=== PATIENT | male | born 1955 | race Caucasian/White ===

== ENCOUNTER → 2017-03-16 | Outpatient (REF) | payer MEDICARE, MEDICAID ==
[~2017-03-16] MED LIST: AMPI500C9 PO; ASPI81TA21 PO; BACITAB PO; CARV6.25 PO; DOCU10CA PO; FERR1TAB8 PO; FLAG500T PO; KLOR1TAB77 PO; NOVO1INJ4 SC; OMEP40CA2 PO; ONGL10TA3 PO; PERCOCET PO; RISATAB3 PO; SERT50TA PO; SIMV40TA2 PO; TYLE325T5 PO
[2017-03-16 20:12] LABS: PERCENT SATURATION 15.3 % (19.7-50.0)
== END ==
LOC: M LAB REF 18:19
PROVIDERS: ATTEND Internal Medicine Nephrology
DX: D50.9 Iron deficiency anemia, unspecified (principal)

== ENCOUNTER 2017-03-30 08:43 | Outpatient (CLI) | payer MEDICARE ==
[~2017-03-30] VITALS: Ht 180.3 cm; Wt 96.4 kg
[2017-03-30] MEDS ORDERED: IRON SUCROSE 25 MG in NS 50 ML IV ONE (09:00)
[2017-03-30] MEDS ORDERED: IRON SUCROSE 475 MG in NS 250 ML IV ONE (10:00)
[2017-03-30] MEDS ORDERED: IMOD2TAB16 PO (11:31)
[2017-03-30] MEDS ORDERED: DRIS50002 PO (11:31)
[2017-03-30] MEDS ORDERED: [UNRECOGNIZED DRUG - CODE] SC (11:31)
== END 2017-03-30 13:40 | disposition home or self-care (01) ==
LOC: M INFU 08:43
PROVIDERS: ATTEND Internal Medicine Nephrology
DX: D50.9 Iron deficiency anemia, unspecified (principal); Z85.038 Personal history of other malignant neoplasm of large intestine; Z92.3 Personal history of irradiation; Z92.21 Personal history of antineoplastic chemotherapy; Z87.891 Personal history of nicotine dependence; I25.2 Old myocardial infarction; N18.9 Chronic kidney disease, unspecified; Z96.0 Presence of urogenital implants; Z79.82 Long term (current) use of aspirin; Z79.899 Other long term (current) drug therapy; Z79.4 Long term (current) use of insulin
CPT/HCPCS: 96365; 96366; J1756

== ENCOUNTER 2017-04-24 16:58 | Emergency (ER) | payer MEDICARE ==
[2017-04-24] MEDS ORDERED: ISOVUE-370 76% 100ML VIAL (Q9967) As Ordered (17:32)
[2017-04-24] MEDS: ADACEL/BOOSTRIX VACCINE (DIPHTH/PERTUSS/ACELL/TETANUS)0.5ML SYR (90715) IM (17:39)
[2017-04-24] MEDS: NS 1,000 ML IV ×2 (17:39→22:00)
[2017-04-24 17:52] LABS: BASO % 0.4 % (0.0-1.0); EOS % 0.6 % (0.0-3.0); HEMATOCRIT 30.8 % (42.0-52.0); HEMOGLOBIN 9.8 g/dl (14.0-18.0); IMMATURE GRANULOCYTE % 0.3 % (0-0); LYMPH # 0.9 10^3/uL (1.5-4.5); LYMPH % 12.9 % (24.0-44.0); MEAN CORPUSCULAR HEMOGLOBIN 29.5 pg (27.0-33.0); MEAN CORPUSCULAR HGB CONC 31.8 g/dl (32.0-36.5); MEAN CORPUSCULAR VOLUME 92.8 fl (80.0-96.0); MONO # 0.6 10^3/uL (0.0-0.8); MONO % 8.9 % (0.0-5.0); NEUTROPHILS # 5.5 10^3/uL (1.8-7.7); NEUTROPHILS % 76.9 % (36.0-66.0); PLATELET COUNT, AUTOMATED 174 10^3/uL (150-450); RED BLOOD COUNT 3.32 10^6/uL (4.30-6.10); RED CELL DISTRIBUTION WIDTH 16.4 % (11.5-14.5); WHITE BLOOD COUNT 7.2 10^3/uL (4.0-10.0)
[2017-04-24 18:04] LABS: INR 1.16
[2017-04-24 18:18] LABS: ALBUMIN 3.2 GM/DL (3.2-5.2); ALKALINE PHOSPHATASE 112 U/L (45-117); ALT/SGPT 14 U/L (12-78); ANION GAP 7 MEQ/L (8-16); AST/SGOT 16 U/L (7-37); BILIRUBIN,DIRECT < 0.1 MG/DL (0.0-0.2); BILIRUBIN,TOTAL 0.4 MG/DL (0.2-1.0); BLOOD UREA NITROGEN 72 MG/DL (7-18); CALCIUM LEVEL 7.8 MG/DL (8.8-10.2); CARBON DIOXIDE LEVEL 23 MEQ/L (21-32); CHLORIDE LEVEL 107 MEQ/L (98-107); CREATININE FOR GFR 4.59 MG/DL (0.70-1.30); GLOMERULAR FILTRATION RATE 13.9 (>49); GLUCOSE, FASTING 211 MG/DL (80-110); LIPASE 87 U/L (73-393); SODIUM LEVEL 137 MEQ/L (136-145); TOTAL PROTEIN 7.8 GM/DL (6.4-8.2)
[2017-04-24 18:22] LABS: POTASSIUM SERUM 5.3 MEQ/L (3.5-5.1)
[2017-04-24] MEDS: ONDANSETRON 4MG/2ML VIAL (J2405) IV (18:50)
[2017-04-24] MEDS: MORPHINE 4 MG/ML 1ML SYRINGE IV ×2 (18:51→22:01)
== END 2017-04-24 22:08 | disposition short-term general hospital (02) ==
LOC: M ED 16:58
DX: S82.491B Other fracture of shaft of right fibula, initial encounter for open fracture type I or II (principal); S82.391B Other fracture of lower end of right tibia, initial encounter for open fracture type I or II; W13.2XXA Fall from, out of or through roof, initial encounter; Y92.89 Other specified places as the place of occurrence of the external cause; Y93.89 Activity, other specified; Y99.8 Other external cause status; M50.30 Other cervical disc degeneration, unspecified cervical region; I25.10 Atherosclerotic heart disease of native coronary artery without angina pectoris; I13.11 Hypertensive heart and chronic kidney disease without heart failure, with stage 5 chronic kidney disease, or end stage renal disease; N18.6 End stage renal disease; E78.5 Hyperlipidemia, unspecified; Z79.899 Other long term (current) drug therapy; Z79.82 Long term (current) use of aspirin; Z79.4 Long term (current) use of insulin; Z87.81 Personal history of (healed) traumatic fracture; Z95.5 Presence of coronary angioplasty implant and graft; Z92.21 Personal history of antineoplastic chemotherapy; Z98.890 Other specified postprocedural states
CPT/HCPCS: J0690

== ENCOUNTER → 2017-08-04 | Outpatient (CLI) | payer MEDICARE | LOC: M RAD 11:56 | DX: N18.6 End stage renal disease (principal) | CPT/HCPCS: G0365 ==

== ENCOUNTER → 2017-12-15 | Outpatient (CLI) | payer MEDICARE ==
[~2017-12-15] MED LIST changes: -AMPI500C9 PO; -ASPI81TA21 PO; -BACITAB PO; -CARV6.25 PO; -DOCU10CA PO; -FERR1TAB8 PO; -FLAG500T PO; +ISOVUE-300 61% 50ML VIAL (Q9967) As Ordered; -KLOR1TAB77 PO; +LIDOCAINE 2% MDV 20 ML VIAL As Ordered; +MIDAZOLAM INJ 2 MG/2 ML VIAL (J2250) As Ordered; -NOVO1INJ4 SC; -OMEP40CA2 PO; -ONGL10TA3 PO; -PERCOCET PO; -RISATAB3 PO; -SERT50TA PO; -SIMV40TA2 PO; -TYLE325T5 PO; +fentaNYL 100 MCG/2 ML INJECTION (J3010) As Ordered
== END | disposition home or self-care (01) ==
LOC: M IRPRO 06:21
DX: T82.858A Stenosis of other vascular prosthetic devices, implants and grafts, initial encounter (principal); N18.6 End stage renal disease; Z99.2 Dependence on renal dialysis; I87.8 Other specified disorders of veins; Z45.2 Encounter for adjustment and management of vascular access device
CPT/HCPCS: 36902

== ENCOUNTER → 2018-06-17 | Outpatient (CLI) | payer MEDICARE ==
[~2018-06-17] MED LIST changes: +AMPI500C9 PO; +ASPI81TA21 PO; +BACITAB PO; +CALC1CAP31 PO; +CARV6.25 PO; +DARB10SYRN IV; +DOCU10CA PO; +DRIS50003 PO; +FERR1TAB8 PO; +FERR325T3 PO; +FLAG500T PO; +FLOM0.4C39 PO; +IMOD2TAB16 PO; -ISOVUE-300 61% 50ML VIAL (Q9967) As Ordered; +ISOVUE-300 61% 50ML VIAL (Q9967) As Ordered ONE; +KLOR1TAB77 PO; -LIDOCAINE 2% MDV 20 ML VIAL As Ordered; +LIDOCAINE 2% MDV 20 ML VIAL As Ordered ONE; -MIDAZOLAM INJ 2 MG/2 ML VIAL (J2250) As Ordered; +MIDAZOLAM INJ 2 MG/2 ML VIAL (J2250) As Ordered ONE; +NOVO1INJ4 SC; +OMEP40CA2 PO; +ONGL10TA3 PO; +PERCOCET PO; +RISATAB3 PO; +SERT50TA PO; +SIMV40TA2 PO; +TYLE325T5 PO; +[UNRECOGNIZED DRUG - CODE] SC; -fentaNYL 100 MCG/2 ML INJECTION (J3010) As Ordered; +fentaNYL 100 MCG/2 ML INJECTION (J3010) As Ordered ONE
--- NOTE | 2018-07-14 08:20 | REPIR ---
DATE OF SERVICE: PREOPERATIVE DIAGNOSES: End-stage renal disease, dysfunctional left brachiocephalic arteriovenous fistula, left hand pain with coolness. POSTOPERATIVE DIAGNOSES: End-stage renal disease, dysfunctional left brachiocephalic arteriovenous fistula, left hand pain with coolness. PROCEDURE: Left brachiocephalic arteriovenous fistulogram, left cephalic vein angioplasty with 8 x 200 mm balloon, retrograde left brachial artery angiogram. SURGEON: Dr. Melissa Paul. HYDR[employer] PLANT SITE MANAGER: Debo Acosta and Marlen Alatorre ANESTHESIA: Local with sedation with 1.5 mg Versed, 100 mcg fentanyl and 2 mL of 2% lidocaine CONTRAST: 5 mL. SEDATION TIME: 11:15 a.m. to 11:31 a.m. for a total of 60 minutes. Sedation was administered. Cardiopulmonary monitoring performed under my direct supervision. I was present for directed the entire case. COMPLICATIONS: None. DRAINS: None. SPECIMENS: None. IMPLANTS: None. INDICATION: The patient is a 62 old male with end-stage renal disease who dialyzes through a left brachiocephalic arteriovenous fistula which has had difficulty with cannulation as well as the patient having some discomfort in the left hand, which he feels is cool. The patient will undergo a fistulogram with possible angioplasty, stent and/or atherectomy. Risks, benefits and alternative options were discussed with the patient. FLUORO TIME: 0.2 minutes. DESCRIPTION OF PROCEDURE: The patient was taken to the angiography suite, placed supine on the angiography room table and then prepped and draped in a standard surgical fashion. The left brachiocephalic arteriovenous fistula was cannulated. A fistulogram was performed showing an 85% stenosis in the cephalic vein in the mid upper arm. The cephalic vein with angioplasty with 8 x 200 balloon during which time a retrograde left brachial artery angiogram was performed. Completion angiogram showed resolution of the stenosis in the cephalic vein with good flow into the central venous system with no stenosis or occlusion noted. Catheters and wires were removed. The sheath was removed and a #2-0 Prolene suture placed at the puncture site for hemostasis. Dressings were then applied. The patient tolerated the procedure well. All instrument, sponge, needle counts were correct at the end the case. There were no complications. Dr. Paul was present for and directed the entire case. The patient was transferred to [facility] subsequent discharged in stable condition. The left brachiocephalic arteriovenous fistula stable for continued use. RADIOLOGIC SUPERVISION INTERPRETATION: The fistulogram showed stenosis of the cephalic vein in the midportion. The remainder of the cephalic vein was patent and the subclavian vein essentially and the system was patent. The cephalic vein underwent angioplasty with an 8 x 200 balloon after which completion fistulogram showed resolution of the stenosis. A retrograde brachial artery angiogram was performed showing no stenosis at the arteriovenous anastomosis and good flow in the brachial artery proximal distal to the arteriovenous anastomosis.
== END | disposition home or self-care (01) ==
LOC: M IRPRO 09:11
PROVIDERS: ATTEND Surgery Vascular Surgery
DX: T82.858A Stenosis of other vascular prosthetic devices, implants and grafts, initial encounter (principal); N18.6 End stage renal disease; Z99.2 Dependence on renal dialysis
CPT/HCPCS: 36902; C1725; C1769; C1894; J2250; J3010; Q9967

== ENCOUNTER → 2019-05-03 | Outpatient (REF) | payer MEDICARE ==
[~2019-05-03] MED LIST changes: -ISOVUE-300 61% 50ML VIAL (Q9967) As Ordered ONE; -LIDOCAINE 2% MDV 20 ML VIAL As Ordered ONE; -MIDAZOLAM INJ 2 MG/2 ML VIAL (J2250) As Ordered ONE; -OMEP40CA2 PO; +OMEP40CA97 PO; +SERT-141 PO; -SERT50TA PO; -SIMV40TA2 PO; +SIMV40TA20 PO; -fentaNYL 100 MCG/2 ML INJECTION (J3010) As Ordered ONE
== END ==
LOC: M LAB REF 09:10
PROVIDERS: ATTEND Dermatology
DX: C44.629 Squamous cell carcinoma of skin of left upper limb, including shoulder (principal)
CPT/HCPCS: 11102; 11103; 88305; G0463

== ENCOUNTER → 2019-05-19 | Outpatient (REF) | payer MEDICARE | LOC: M LAB REF 18:20 | PROVIDERS: ATTEND Dermatology | DX: D23.62 Other benign neoplasm of skin of left upper limb, including shoulder (principal) ==

== ENCOUNTER 2020-03-23 16:09 | Emergency (ER) | payer MEDICARE ==
[~2020-03-23] VITALS: Ht 180.3 cm; Wt 115.8 kg
[~2020-03-23 16:09] MED LIST changes: +HUMA75IN2 SC; +POTA20TA6 PO
--- NOTE | 2020-03-23 17:48 | REP ---
INDICATION: bowel extruding from stoma R/O obstruction. COMPARISON: 01/06/2015. TECHNIQUE: Two AP views abdomen and pelvis performed. FINDINGS: Bowel gas pattern is normal with no evidence of bowel obstruction. A right ureteral stent is again seen in similar position compared to the prior study. There appears to be an ostomy bag projecting over the left mid abdomen. Scattered vascular calcifications are noted diffusely. There are moderate degenerative changes of the spine. IMPRESSION: No bowel obstruction. <Electronically signed by [employer] > 03/23/20 [id number]
[2020-03-23 18:34] LABS: BASO % 0.6 % (0.0-1.0); EOS # 0.1 10^3/uL (0.0-0.5); EOS % 1.5 % (0.0-3.0); HEMATOCRIT 33.9 % (42.0-52.0); LYMPH # 0.7 10^3/uL (1.5-5.0); LYMPH % 15.3 % (24.0-44.0); MEAN CORPUSCULAR HEMOGLOBIN 29.3 pg (27.0-33.0); MEAN CORPUSCULAR HGB CONC 32.4 g/dl (32.0-36.5); MEAN CORPUSCULAR VOLUME 90.4 fl (80.0-96.0); MONO # 0.6 10^3/uL (0.0-0.8); MONO % 11.9 % (0.0-5.0); NEUTROPHILS # 3.3 10^3/uL (1.5-8.5); NEUTROPHILS % 70.3 % (36.0-66.0); PLATELET COUNT, AUTOMATED 137 10^3/uL (150-450); RED BLOOD COUNT 3.75 10^6/uL (4.30-6.10); WHITE BLOOD COUNT 4.7 10^3/uL (4.0-10.0)
[2020-03-23 18:50] LABS: INR 1.13; PROTHROMBIN TIME 14.8 SECONDS (12.5-14.3)
[2020-03-23 19:00] LABS: ALBUMIN 3.4 GM/DL (3.2-5.2); BILIRUBIN,TOTAL 0.4 MG/DL (0.2-1.0); CALCIUM LEVEL 8.7 MG/DL (8.8-10.2); CREATININE FOR GFR 4.19 MG/DL (0.70-1.30); GLOMERULAR FILTRATION RATE 15.3 (>49); POTASSIUM SERUM 3.6 MEQ/L (3.5-5.1); TOTAL PROTEIN 7.3 GM/DL (6.4-8.2)
[2020-03-23 19:46] VITALS: BP 148/72
== END 2020-03-23 19:49 | disposition home or self-care (01) ==
LOC: M ED 16:09
DX: K94.09 Other complications of colostomy (principal); Z85.048 Personal history of other malignant neoplasm of rectum, rectosigmoid junction, and anus; Z92.21 Personal history of antineoplastic chemotherapy; Z87.19 Personal history of other diseases of the digestive system; E11.9 Type 2 diabetes mellitus without complications; I10 Essential (primary) hypertension; E78.5 Hyperlipidemia, unspecified; I25.2 Old myocardial infarction; N18.6 End stage renal disease; F32.9 Major depressive disorder, single episode, unspecified; Z95.5 Presence of coronary angioplasty implant and graft; Z88.1 Allergy status to other antibiotic agents; Z79.82 Long term (current) use of aspirin

== ENCOUNTER → 2020-04-04 | Outpatient (CLI) | payer MEDICARE ==
[~2020-04-04] MED LIST changes: +GASTROGRAFIN SOLUTION 30ML (Q9963) As Ordered ONE
--- NOTE | 2020-04-04 14:19 | REP ---
INDICATION: OTHER COMPLICATIONS OF COLOSTOMY COMPARISON: 04/24/2017 TECHNIQUE: Axial noncontrast images from the lung bases to the pubic symphysis with coronal and sagittal reformations. This CT examination was performed using the following dose reduction techniques: Automated exposure control, adjustment of mA and/or kv according to the patient's size, and use of iterative reconstruction technique. FINDINGS: Mild hepatosplenomegaly is again suggested and unchanged. No focal hepatic or splenic lesion identified. Pancreas, gallbladder, and bilateral adrenal glands are relatively normal/stable. Kidneys demonstrate stable age-related changes along with stable right ureteral stent in satisfactory position. Patient is noted to be status post partial left hemicolectomy with ostomy via the left anterior abdominal wall and oversewn Lucinda's pouch. There is no evidence for bowel obstruction or obvious acute inflammatory process. Infiltrative soft tissue surrounding the rectum within the presacral space appears relatively stable as compared to 2018. Further evaluation of the pelvis demonstrates partially collapsed bladder and presumed age-appropriate prostate along with moderate bilateral fat containing inguinal hernias. No ascites. No free air. No significant adenopathy noted. Abdominal aorta and vasculature demonstrate atherosclerotic changes without aneurysm. Musculoskeletal structures demonstrate degenerative changes without acute osseous abnormality. IMPRESSION: 1. Prior partial left hemicolectomy and colostomy. Oversewn Lucinda's pouch. No evidence for bowel obstruction or obvious focal inflammatory process. 2. Infiltrative soft tissue process surrounding the rectum in the presacral space appears essentially unchanged compared to 2018. No free pelvic fluid, ascites or drainable collection/abscess. No free air. 3. Chronic renal changes and stable satisfactory position to the right ureteral stent. 4. Mild hepatosplenomegaly again suggested without focal hepatic or splenic lesion. <Electronically signed by Leonard Cruz > 04/04/20 [id number]
== END ==
LOC: M RAD 12:16
PROVIDERS: ATTEND Surgery
DX: K94.09 Other complications of colostomy (principal); K43.5 Parastomal hernia without obstruction or gangrene
CPT/HCPCS: 74176; Q9963

== ENCOUNTER → 2020-04-28 | Outpatient (CLI) | payer MEDICARE ==
[~2020-04-28] MED LIST changes: +ASPI81TA26 PO; -GASTROGRAFIN SOLUTION 30ML (Q9963) As Ordered ONE
== END ==
LOC: M LABSMTC 10:00
PROVIDERS: ATTEND Anesthesiology
DX: Z01.812 Encounter for preprocedural laboratory examination (principal); Z20.822 Contact with and (suspected) exposure to COVID-19

== ENCOUNTER → 2020-06-03 | Outpatient (CLI) | payer MEDICARE | LOC: M LABSMTC 09:16 | PROVIDERS: ATTEND Anesthesiology | DX: Z01.818 Encounter for other preprocedural examination (principal); Z11.52 Encounter for screening for COVID-19 ==

== ENCOUNTER 2020-06-08 06:01 | Day surgery (SDC) | payer MEDICARE ==
[~2020-06-08] VITALS: Ht 180.3 cm; Wt 102.9 kg
[~2020-06-08 06:01] MED LIST changes: +D5W/0.2% SODIUM CHLORIDE 1,000 ML IV ONE; +cefoTEtan DISODIUM 2 GM in D5W MINI-BAG PLUS 50 ML IV ONE
--- OUTSIDE RECORDS SUMMARY | 2020-06-08 06:07 | CCD | Continuity of Care Document ---
Author Author Cezar FERMIN M.D. Organization Unknown Address [address], [address] [place] [address] Phone [phone] Care Team Providers Care Patient Transporter Name Role Phone Martín Framer M.D. AUTM [phone] Qamar Hodges M.D. AUTM [phone] AUTM Unavailable Problems Description No Active Problems Social History Type Date Description Comments Sex Unknown ETOH Use Denies alcohol use Tobacco Use Start: Unknown End: Unknown Patient is a former smoker QUIT 1997 Recreational Drug Use Denies Drug Use Allergies, Adverse Reactions, Alerts Active Allergies Reaction Severity Comments Date Vancomycin (po vanco) Diarrhea 2014 Medications Active Medications SIG Qnty Indications Ordering Provide r Date Carvedilol 6.25mg Tablets every day 180tabs Unknown Simvastatin 40mg Tablets take one tablet by mouth at bedtime Unknown Aspir-[address] Unknown Sertraline HCL 50mg Tablets 1 by mouth every day Unknown Omeprazole 40mg Capsules DR 1 by mouth every day Unknown Probiotic Capsules 1 by mouth every day Unknown Ferrous Sulfate 325(65Fe) mg Table ts 1 by mouth once a day Unknown Calcitriol 0.25mcg Capsules once a day Unknown Humalog Mix 75/25 Kwikpen (75-25)100Unit/ML Supn twice a day Unknown Immunizations Description No Information Available Vital Signs Date Vital Result Comment 03/26/2020 3:06pm BP Systolic 128 mmHg BP Diastolic 66 mmHg Height 71 inches 5'11" Weight 252.12 lb BMI (Body Mass Index) 35.2 kg/m2 [place] Body Weight 172 lb Weight 114.364 kg BSA (Body Surface Area) 2.33 m2 06/13/2019 3:14pm BP Systolic 173 mmHg BP Diastolic 79 mmHg Height 71 inches 5'11" Weight 250.50 lb BMI (Body Mass Index) 34.9 kg/m2 [place] Body Weight 172 lb Weight 113.627 kg BSA (Body Surface Area) 2.32 m2 Results Description No Information Available Procedures Description No Information Available Medical Devices Description No Information Available Encounters Description No Information Available Assessments Description No Information Available Plan of Treatment No Information Available Functional Status Description No Information Available Mental Status Description No Information Available Referrals Description No Information Available
--- OUTSIDE RECORDS SUMMARY | 2020-06-08 06:07 | CCD | Continuity of Care Document ---
Author Author Cezar FERMIN M.D. Organization Unknown Address [address], [address] [place] [address] Phone [phone] Care Team Providers Care Global Climate Change Researcher Name Role Phone Martín Farmer M.D. AUTM [phone] Qamar Hodges M.D. AUTM [phone] AUTM Unavailable AUTM Unavailable Problems Description No Active Problems [...] Available Vital Signs Date Vital Result Comment 04/16/2020 11:00am BP Systolic 130 mmHg BP Diastolic 78 mmHg Height 71 inches 5'11" Weight 248.25 lb BMI (Body Mass Index) 34.6 kg/m2 [place] Body Weight 172 lb Weight 112.606 kg BSA (Body Surface Area) 2.31 m2 03/26/2020 3:06pm BP Systolic 128 mmHg BP Diastolic 66 mmHg Height 71 inches 5'11" Weight 252.12 lb BMI (Body Mass Index) 35.2 kg/m2 [place] Body Weight 172 lb Weight 114.364 kg BSA (Body Surface Area) 2.33 m2 Results Description No Information Available Procedures Description No Information Available Medical Devices Description No Information Available Encounters Type Date Location Provider Dx Diagnosis Office Visit 03/26/2020 3:00p [facility] Juan Francisco barnhart M.D. K94.09 Other complications of colostomy K43.5 Parastomal hernia without ob struction or gangrene N18.6 End stage renal disease Assessments Date Code Description Provider 03/26/2020 K94.09 Other complications of colostomy Juan Francisco Fermin M.D. 03/26/2020 K43.5 Parastomal hernia without obstru ction or gangrene Juan Francisco Fermin M.D. 03/26/2020 N18.6 End stage renal disease Juan Francisco barbosa M.D. Plan of Treatment 03/26/2020 - Juan Francisco Fermin M.D.* K94.09 Other complications of colostomy* Comments:* Patient was counseled that he clearly has a significant prolapse of his stoma. He reports that this reduces when he is flat. Any activity however leads to significant prolapse even worse than it currently is according to his report. Today I do not feel a parastomal hernia although I didn't think when I saw him a year and a half ago that there was a suggestion of a small parastomal hernia. The abdomen is obese but soft and without any tenderness. He's had no symptoms of obstruction. He has had some bleeding from his stoma which appears somewhat congested today. I recommended that we obtain a CT scan to evaluate his stoma and look for evidence of a parastomal hernia. I advised him that if revision of the stoma might be the most appropriate treatment for his prolapsing stoma. I do want to know for certain whether there is any parastomal hernia. His obesity makes this determination difficult on physical exam. If there is a parastomal hernia then I would need to be prepared to repair this at the same time as his stoma revision. Patient had an opportunity to ask questions. He does want to proceed with evaluation to have this repaired. I will see him back after the CT scan and we can discuss treatment. * K43.5 Parastomal hernia without obstruction or gangrene* New Xrays:* CT Abdomen And Pelvis W/ Contrast, Ordered: 03/26/20 * N18.6 End stage renal disease Functional Status Description No Information Available Mental Status Description No Information Available Referrals Description No Information Available
--- OUTSIDE RECORDS SUMMARY | 2020-06-08 06:08 | CCD ---
Author Author [facility] Organization [facility] Address Unknown Phone Unavailable Care Team Providers Care Anvil Worker Name Role Phone Saida ALEX MD Unavailable Unavailable Saida ALEX MD Unavailable Unavailable Saida ALEX MD Unavailable Unavailable Saida ALEX MD Unavailable Unavailable Saida ALEX MD Unavailable Unavailable Saida ALEX MD Unavailable Unavailable Saida ALEX MD Unavailable Unavailable Saida ALEX MD Unavailable Unavailable Saida ALEX MD Unavailable Unavailable Saida ALEX MD Unavailable Unavailable Saida ALEX MD Unavailable Unavailable Saida ALEX MD Unavailable Unavailable Saida ALEX MD Unavailable Unavailable Saida ALEX MD Unavailable Unavailable Saida ALEX MD Unavailable Unavailable ISAISaida MD Unavailable Unavailable ISAI S ANGELA PYANE Unavailable Unavailable ISAI S ANGELA PAYNE Unavailable Unavailable ISAI S ANGELA PAYEN Unavailable Unavailable ISAI S ANGELA PAYNE Unavailable Unavailable ISAISaida MD Unavailable Unavailable ISAI S ANGELA MD Unavailable Unavailable ISAI S ANGELA PAYNE Unavailable Unavailable ISAI S ANGELA MD Unavailable Unavailable ISAI S ANGELA PAYNE Unavailable Unavailable ISAI S ANGELA PAYNE Unavailable Unavailable ISAI S ANGELA PAYNE Unavailable Unavailable ISAISaida MD Unavailable Unavailable ISAI S ANGELA PAYNE Unavailable Unavailable ISAISaida DUTTON MD Unavailable Unavailable ISAI, S ANGELA PAYNE Unavailable Unavailable ISAI S ANGELA PAYNE Unavailable Unavailable ISAI, S ANGELA PAYNE Unavailable Unavailable ISAISaida DUTTON MD Unavailable Unavailable ISAISaida DUTTON MD Unavailable Unavailable ISAISaida DUTTON MD Unavailable Unavailable ISAISaida DUTTON MD Unavailable Unavailable ISAI S ANGELA PAYNE Unavailable Unavailable ISAISaida DUTTON MD Unavailable Unavailable ISAISaida DUTTON MD Unavailable Unavailable ISAISaida DUTTON MD Unavailable Unavailable ISAISaida DUTTON MD Unavailable Unavailable ISAISaida DUTTON MD Unavailable Unavailable ISAISaida DUTTON MD Unavailable Unavailable ISAI, S ANGELA PAYNE Unavailable Unavailable ISAISaida DUTTON MD Unavailable Unavailable ISAI, S ANGELA PAYNE Unavailable Unavailable ISAISaida DUTTON MD Unavailable Unavailable ISAI, S ANGELA PAYNE Unavailable Unavailable ISAI S ANGELA PAYNE Unavailable Unavailable ISAI, S ANGELA PAYNE Unavailable Unavailable ISAI S ANGELA PAYNE Unavailable Unavailable ISAISaida DUTTON MD Unavailable Unavailable ISAI, S ANGELA PAYNE Unavailable Unavailable ISAISaida DUTTON MD Unavailable Unavailable ISAI, S ANGELA PAYNE Unavailable Unavailable ISAI S ANGELA PAYNE Unavailable Unavailable ISAI S ANGELA PAYNE Unavailable Unavailable ISAI S ANGELA PAYNE Unavailable Unavailable Mary Hodges MD Unavailable Unavailable Mary Hodges MD Unavailable Unavailable Mary Hodges MD Unavailable Unavailable Mary Hodges MD Unavailable Unavailable Mary Hodges MD Unavailable Unavailable Mary Hodges MD Unavailable Unavailable Mary Hodges MD Unavailable Unavailable Mary Hodges MD Unavailable Unavailable Mary Hodges MD Unavailable Unavailable Mary Hodges MD Unavailable Unavailable LyndaMary palafox MD Unavailable Unavailable LyndakerMary MD Unavailable Unavailable LyndaMary palafox MD Unavailable Unavailable LyndakerMary MD Unavailable Unavailable LyndakerMary MD Unavailable Unavailable LyndakerMary MD Unavailable Unavailable LyndaMary palafox MD Unavailable Unavailable LyndaMary palafox MD Unavailable Unavailable LyndaMary palafox MD Unavailable Unavailable LyndaMary palafox MD Unavailable Unavailable LyndakerMary MD Unavailable Unavailable LyndakerMary MD Unavailable Unavailable LyndaMary palafox MD Unavailable Unavailable LyndaMary palafox MD Unavailable Unavailable LyndaMary palafox MD Unavailable Unavailable LyndaMary palafox MD Unavailable Unavailable LyndaMary palafox MD Unavailable Unavailable LyndaMary palafox MD Unavailable Unavailable LyndaMary palafox MD Unavailable Unavailable LyndaMary palafox MD Unavailable Unavailable LyndaMary palafox MD Unavailable Unavailable LyndaMary palafox MD Unavailable Unavailable LyndaMary palafox MD Unavailable Unavailable LyndaMary palafox MD Unavailable Unavailable LyndaMary palafox MD Unavailable Unavailable LyndaMary palafox MD Unavailable Unavailable LyndaMary palafox MD Unavailable Unavailable LyndaMary palafox MD Unavailable Unavailable LyndaMary palafox MD Unavailable Unavailable LyndaMary palafox MD Unavailable Unavailable LyndaMary palafox MD Unavailable Unavailable LyndaMary palafox MD Unavailable Unavailable LyndaMary palafox MD Unavailable Unavailable LynMary ortez MD Unavailable Unavailable LynMary ortez MD Unavailable Unavailable LyndaMary palafox MD Unavailable Unavailable LyndaMary palafox MD Unavailable Unavailable LyndaMary palafox MD Unavailable Unavailable LyndaMary palafox MD Unavailable Unavailable LynMary ortez MD Unavailable Unavailable LynMary ortez MD Unavailable Unavailable LyndaMary palafox MD Unavailable Unavailable LyndaMary palafox MD Unavailable Unavailable LyndaMary palafox MD Unavailable Unavailable LyndaMary palafox MD Unavailable Unavailable LyndaMary palafox MD Unavailable Unavailable LyndaMary palafox MD Unavailable Unavailable LyndaMary palafox MD Unavailable Unavailable LyndaMary palafox MD Unavailable Unavailable LyndaMary palafox MD Unavailable Unavailable LyndakerMary MD Unavailable Unavailable Lyndaker, Mary Foote MD Unavailable Unavailable Lyndaker, Mary Foote MD Unavailable Unavailable Lyndaker, aMry Foote MD Unavailable Unavailable Lyndaker, Mary Foote MD Unavailable Unavailable Lyndaker, Mary Foote MD Unavailable Unavailable LyndaMary palafox MD Unavailable Unavailable LyndaMary palafox MD Unavailable Unavailable LyndaMary palafox MD Unavailable Unavailable LyndaMary palafox MD Unavailable Unavailable Lyndaker, Mary Foote MD Unavailable Unavailable Lyndaker, Mary Foote MD Unavailable Unavailable LyndaMary palafox MD Unavailable Unavailable LyndaMary palafox MD Unavailable Unavailable LyndaMary palafox MD Unavailable Unavailable Lyndavivienne, Mary Foote MD Unavailable Unavailable Lyndavivienne, Mary Foote MD Unavailable Unavailable Lyndavivienne, Mary Foote MD Unavailable Unavailable LyndaMary palafox MD Unavailable Unavailable LyndaMary palafox MD Unavailable Unavailable LyndaMary palafox MD Unavailable Unavailable LyndaMary palafox MD Unavailable Unavailable Lyndavivienne, aMry Foote MD Unavailable Unavailable LyndaMary palafox MD Unavailable Unavailable LyndaMary palafox MD Unavailable Unavailable LyndaMary palafox MD Unavailable Unavailable LyndaMary palafox MD Unavailable Unavailable LyndaMary palafox MD Unavailable Unavailable LyndaMary palafox MD Unavailable Unavailable LyndaMary palafox MD Unavailable Unavailable LyndaMary palafox MD Unavailable Unavailable ISAISaida HART MD Unavailable Unavailable Saida ALEX MD Unavailable Unavailable ISAISaida HART MD Unavailable Unavailable Saida ALEX MD Unavailable Unavailable Saida ALEX MD Unavailable Unavailable ISAISaida DUTTON MD Unavailable Unavailable ISAISaida DUTTON MD Unavailable Unavailable ISAISaida DUTTON MD Unavailable Unavailable ISAISaida DUTTON MD Unavailable Unavailable ISAISaida HART MD Unavailable Unavailable Saida ALEX MD Unavailable Unavailable Saida ALEX MD Unavailable Unavailable Saida ALEX MD Unavailable Unavailable Saida ALEX MD Unavailable Unavailable ISAISaida DUTTON MD Unavailable Unavailable ISAISaida DUTTON MD Unavailable Unavailable ISAISaida DUTTON MD Unavailable Unavailable ISAISaida DUTTON MD Unavailable Unavailable ISAISaida DUTTON MD Unavailable Unavailable ISAISaida DUTTON MD Unavailable Unavailable ISAISaida DUTTON MD Unavailable Unavailable ISAISaida HART MD Unavailable Unavailable ISAISaida HART MD Unavailable Unavailable ISAISaida DUTTON MD Unavailable Unavailable ISAISaida HART MD Unavailable Unavailable ISAISaida HART MD Unavailable Unavailable Saida ALEX MD Unavailable Unavailable Saida ALEX MD Unavailable Unavailable ISAISaida DUTTON MD Unavailable Unavailable Saida ALEX MD Unavailable Unavailable ISAISaida HART MD Unavailable Unavailable Saida ALEX MD Unavailable Unavailable Saida ALEX MD Unavailable Unavailable Saida ALEX MD Unavailable Unavailable Saida ALEX MD Unavailable Unavailable Saida ALEX MD Unavailable Unavailable Saida ALEX MD Unavailable Unavailable Saida ALEX MD Unavailable Unavailable Saida ALEX MD Unavailable Unavailable Saida ALEX MD Unavailable Unavailable Saida ALEX MD Unavailable Unavailable Saida ALEX MD Unavailable Unavailable Saida ALEX MD Unavailable Unavailable Saida ALEX MD Unavailable Unavailable Saida ALEX MD Unavailable Unavailable Saida ALEX MD Unavailable Unavailable Saida ALEX MD Unavailable Unavailable Saida ALEX MD Unavailable Unavailable Saida ALEX MD Unavailable Unavailable Saida ALEX MD Unavailable Unavailable Saida ALEX MD Unavailable Unavailable Saida ALEX MD Unavailable Unavailable Saida ALEX MD Unavailable Unavailable Saida ALEX MD Unavailable Unavailable Saida ALEX MD Unavailable Unavailable Saida ALEX MD Unavailable Unavailable Saida ALEX MD Unavailable Unavailable Saida ALEX MD Unavailable Unavailable Saida ALEX MD Unavailable Unavailable Tasia ESCAMILLA Unavailable Unavailable Arvin FERMIN MD Unavailable Unavailable Arvin FERMIN MD Unavailable Unavailable Arvin FERMIN MD Unavailable Unavailable Arvin FERMIN MD Unavailable Unavailable Arvin FERMIN MD Unavailable Unavailable Arvin FERMIN MD Unavailable Unavailable Arvin FERMIN MD Unavailable Unavailable Arvin FERMIN MD Unavailable Unavailable Arvin FERMIN MD Unavailable Unavailable Arvin FERMIN MD Unavailable Unavailable Arvin FERMIN MD Unavailable Unavailable Arvin FERMIN MD Unavailable Unavailable Arvin FERMIN MD Unavailable Unavailable Arvin FERMIN MD Unavailable Unavailable Arvin FERMIN MD Unavailable Unavailable Arvin FERMIN MD Unavailable Unavailable Arvin FERMIN MD Unavailable Unavailable Arvin FERMIN MD Unavailable Unavailable Arvin FERMIN MD Unavailable Unavailable Arvin FERMIN MD Unavailable Unavailable Arvin FERMIN MD Unavailable Unavailable Arvin FERMIN MD Unavailable Unavailable Arvin FERMIN MD Unavailable Unavailable Arvin FERMIN MD Unavailable Unavailable Arvin FERMIN MD Unavailable Unavailable Arvin FERMIN MD Unavailable Unavailable Arvin FERMIN MD Unavailable Unavailable Arvin EFRMIN MD Unavailable Unavailable Arvin FERMIN MD Unavailable Unavailable Arvin FERMIN MD Unavailable Unavailable Arvin FERMIN MD Unavailable Unavailable Arvin FERMIN MD Unavailable Unavailable Arvin FERMIN MD Unavailable Unavailable Arvin FERMIN MD Unavailable Unavailable ZANDERArvin MCKEON MD Unavailable Unavailable Arvin FERMIN MD Unavailable Unavailable ZANDER, Arvin SARAH MD Unavailable Unavailable Arvin FERMIN MD Unavailable Unavailable Arvin FERMIN MD Unavailable Unavailable ZANDER, Arvin SARAH MD Unavailable Unavailable Arvin FERMIN MD Unavailable Unavailable ZANDER, Arvin SARAH MD Unavailable Unavailable Artur BUCKLEY Unavailable Unavailable Thankachan, Reeba ORCHID HAND Unavailable Unavailable Thankachan, Reeba ORCHID HAND Unavailable Unavailable Thankachan, Reeba ORCHID HAND Unavailable Unavailable Thankachan, Reeba ORCHID HAND Unavailable Unavailable Thankachan, Reeba ORCHID HAND Unavailable Unavailable Thankachan, Reeba ORCHID HAND Unavailable Unavailable Thankachan, Reeba ORCHID HAND Unavailable Unavailable Thankachan, Reeba ORCHID HAND Unavailable Unavailable Thankachan, Reeba ORCHID HAND Unavailable Unavailable Thankachan, Reeba ORCHID HAND Unavailable Unavailable Thankachan, Reeba ORCHID HAND Unavailable Unavailable Thankachan, Reeba ORCHID HAND Unavailable Unavailable Thankachan, Reeba ORCHID HAND Unavailable Unavailable Thankachan, Reeba ORCHID HAND Unavailable Unavailable Thankachan, Reeba ORCHID HAND Unavailable Unavailable Thankachan, Reeba ORCHID HAND Unavailable Unavailable Thankachan, Reeba ORCHID HAND Unavailable Unavailable Thankachan, Reeba ORCHID HAND Unavailable Unavailable Thankachan, Reeba ORCHID HAND Unavailable Unavailable Thankachan, Reeba ORCHID HAND Unavailable Unavailable Thankachan, Reeba ORCHID HAND Unavailable Unavailable Thankachan, Reeba ORCHID HAND Unavailable Unavailable Thankachan, Reeba ORCHID HAND Unavailable Unavailable Thankachan, Reeba ORCHID HAND Unavailable Unavailable Thankachan, Reeba ORCHID HAND Unavailable Unavailable Thankachan, Reeba ORCHID HAND Unavailable Unavailable Thankachan, Reeba ORCHID HAND Unavailable Unavailable Thankachan, Reeba ORCHID HAND Unavailable Unavailable Thankachan, Reeba ORCHID HAND Unavailable Unavailable Thankachan, Reeba ORCHID HAND Unavailable Unavailable Thankachan, Reeba ORCHID HAND Unavailable Unavailable Thankachan, Reeba ORCHID HAND Unavailable Unavailable Thankachan, Reeba ORCHID HAND Unavailable Unavailable Thankachan, Reeba ORCHID HAND Unavailable Unavailable Thankachan, Reeba ORCHID HAND Unavailable Unavailable Thankachan, Reeba ORCHID HAND Unavailable Unavailable Thankachan, Reeba ORCHID HAND Unavailable Unavailable Thankachan, Reeba ORCHID HAND Unavailable Unavailable Thankachan, Reeba ORCHID HAND Unavailable Unavailable Thankachan, Reeba ORCHID HAND Unavailable Unavailable Thankachan, Reeba ORCHID HAND Unavailable Unavailable Thankachan, Reeba ORCHID HAND Unavailable Unavailable Thankachan, Reeba ORCHID HAND Unavailable Unavailable Thankachan, Reeba ORCHID HAND Unavailable Unavailable Re-disclosure Warning The records that you are about to access may contain information from federally-assisted alcohol or drug abuse programs. If such information is present, then the following federally mandated warning applies: This information has been disclosed to you from records protected by federal confidentiality rules (42 CFR part 2). The federal rules prohibit you from making any further disclosure of this information unless further disclosure is expressly permitted by the written consent of the person to whom it pertains or as otherwise permitted by 42 CFR part 2. A general authorization for the release of medical or other information is NOT sufficient for this purpose. The Federal rules restrict any use of the information to criminally investigate or prosecute any alcohol or drug abuse patient.The records that you are about to access may contain highly sensitive health information, the redisclosure of which is protected by Article 27-F of the [facility] Public Health law. If you continue you may have access to information: Regarding HIV / AIDS; Provided by facilities licensed or operated by the [facility] Office of Mental Health; or Provided by the [facility] Office for People With Developmental Disabilities. If such information is present, then the following [facility] mandated warning applies: This information has been disclosed to you from confidential records which are protected by state law. State law prohibits you from making any further disclosure of this information without the specific written consent of the person to whom it pertains, or as otherwise permitted by law. Any unauthorized further disclosure in violation of state law may result in a fine or senior living sentence or both. A general authorization for the release of medical or other information is NOT sufficient authorization for further disc losure. Allergies and Adverse Reactions Type Description Substance Reaction Status Data Source(s ) Drug allergy Vancomycin HCl Vancomycin Unknown Active eCW1 ([facility]) Family History Family Member Name Family Member Gender Family Member Status Date o f Status Description Data Source(s) Unknown Unknown Problem MEDENT ([facility], ) Encounters Encounter Providers Location Date Indications Data Source(s ) Recurring Patient Attender: ANGELA ALEX MD ER-DIAL 0 05/14/2020 12:43:00 AM [facility] Outpatient Attender: ANGELA ALEX MD ER-DIAL 04/2020 01:44:00 AM EST - 05/13/2020 01:33:00 PM [facility] Patient discharged. Outpatient Attender: TYREL Medina/Chaitanya/Dal[place]/Falguni indl 03/26/2020 02:00:00 PM EST MEDENT ([facility]ice, ) Outpatient Attender: ANGELA ALEX MD ER-DIAL 04/2019 01:10:00 AM EST - 04/12/2020 06:42:00 PM [facility] Patient discharged. Outpatient Attender: ANGELA ALEX MD ER-DIAL 04/2019 01:37:00 AM EST - 03/12/2020 06:01:00 PM [facility] Patient discharged. [place] [address] [facility] [address] 01/31/2020 12:00:00 AM EDT eCW1 ([facility]) [place] [address] [facility] [place] [address] 01/26/2020 12:00:00 AM EDT eCW1 ([facility]) Outpatient Attender: ANGELA ALEX MD ER-DIAL 04/2019 01:41:00 AM EDT - 02/11/2020 06:08:00 PM [facility] Patient discharged. 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</content>, <content ID="encounterDiagnosisID1-3">Diabetes Mellitus Type 2 - Insulin-treated, Non- insulin Dependent</content>, <content ID="encounterDiagnosisID1-4">Hypertensive Chronic Kidney Disease W/ Stage 1 - 4 Chronic Kidney Disease</content>, <content ID="encounterDiagnosisID1-5">Diabetes Mellitus Type 2</content></td> Attender: Qamar Hodges MD [facility] 12/16/2019 12:55:00 P M EDT - 12/16/2019 01:29:00 PM EDT Hypertensive Chronic Kidney Disease W/ S tage 1 - 4 Chronic Kidney DiseaseDiabetes Mellitus Type 2 - Insulin-treated, Non-insulin DependentHypertensive Chronic Kidney Disease W/ Stage 1 - 4 Chronic Kidney DiseaseDiabetes Mellitus Type 2 - Insulin-treated, Non-insulin Dependent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End Stage Renal Disease on Dialysis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End Stage Renal Disease on DialysisArteriosclerotic Cardiovascular Disease (Ascvd)Arteriosclerotic Cardiovascular Disease (Asc vd)Diabetes Mellitus Type 2Diabetes Mellitus Type 2 [place] ([facility]) Hypertensive Chronic Kidney Disease W/ S tage 1 - 4 Chronic Kidney Disease Diabetes Mellitus Type 2 - Insulin-treat ed, Non-insulin Dependent Hypertensive Chronic Kidney Disease W/ S tage 1 - 4 Chronic Kidney Disease Diabetes Mellitus Type 2 - Insulin-treat ed, Non-insulin Dependent 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 End Stage Renal Disease on Dialysis 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 End Stage Renal Disease on Dialysis Arteriosclerotic Cardiovascular Disease (Ascvd) Arteriosclerotic Cardiovascular Disease ([facility]) Diabetes Mellitus Type 2 Diabetes Mellitus Type 2 Outpatient<td ID="encounterTypeDescripti onID0"> Annual Wellness SUBSEQUENT visi t(> 1yr since prev.</td><td>Qamar Hodges MD</td><td>[facility]</td><td>12/16/2019</td><td> 12:55PM</td><td>1:29PM</td><td><content ID="encounterDiagnosisID0-0">Routine History and Physical Adult (18 - 64 Yrs)</content></td> Attender: Qamar Hodges MD [facility] 12/16/2019 12:55:00 P M EDT - 12/16/2019 01:29:00 PM EDT Routine History and Physical Adult (18 - 64 Yrs) [place] ([facility]) Routine History and Physical Adult (18 - 64 Yrs) Outpatient Attender: ANGELA ALEX MD ER-DIAL 04/2019 01:09:00 AM EDT - 01/11/2020 08:24:00 PM EDT [facility] Patient discharged. Outpatient Attender: ANGELA ALEX MD ER-DIAL 04/2019 03:53:00 AM EDT - 12/12/2019 06:37:00 PM EDT [facility] Patient discharged. Outpatient Attender: ANGELA LAEX MD ER-DIAL 04/2019 03:46:00 AM EDT - 11/11/2019 07:55:00 PM EDT [facility] Patient discharged. Outpatient Attender: ANGELA ALEX MD ER-DIAL 04/2019 02:20:00 AM EDT - 10/11/2019 08:14:00 PM EDT [facility] Patient discharged. [facility] [address] [place] [phone] 08/30/2019 12:00:00 AM EDT eCW1 ([facility]) Outpatient Attender: ANGELA ALEX MD ER-DIAL 04/2019 07:01:00 AM EDT - 09/11/2019 07:43:00 PM EDT [facility] Patient discharged. Outpatient Attender: ANGELA ALEX MD ER-DIAL 04/2019 12:35:00 AM EDT - 08/11/2019 09:43:00 PM EDT [facility] Patient discharged. Outpatient Attender: ANGELA ALEX MD ER-DIAL 04/2019 12:55:00 AM EST - 07/12/2019 07:28:00 PM EDT [facility] Patient discharged. [facility] [address] [place] [phone] 05/30/2019 12:00:00 AM EST eCW1 ([facility]) [facility] [address] [address] 05/19/2019 12:00:00 AM EST eCW1 ([facility]) Outpatient Attender: ANGELA ALEX MD ER-DIAL 04/2019 12:14:00 AM EST - 06/11/2019 06:56:00 PM EST [facility] Patient discharged. [facility] [address] [address] 05/03/2019 12:00:00 AM EST eCW1 ([facility]) Outpatient Attender: ANGELA ALEX MD ER-DIAL 04/2019 11:59:00 AM EST - 05/13/2019 07:07:00 PM EST [facility] Patient discharged. Outpatient Attender: ANGELA ALEX MD ER-DIAL 04/2018 12:11:00 AM EST - 04/12/2019 08:06:00 PM EST [facility] Patient discharged. Outpatient Attender: ANGELA ALEX MD ER-DIAL 04/2018 03:27:00 AM EDT - 03/12/2019 06:22:00 PM EST [facility] Patient discharged. Outpatient Attender: ANGELA ALEX MD ER-DIAL 04/2018 05:46:00 AM EDT - 02/10/2019 07:02:00 PM EDT [facility] Patient discharged. Outpatient Attender: SUSAN Del Rosario nder: PERLA BUCKLEYReferrer: ANGELA ALEX MD [id number] 01/05/2019 12:00:00 AM EDT - 01/05/2019 02:37:05 PM EDT Encounter for other preprocedural examination [facility] Encounter for other preprocedural examin ation Outpatient Attender: ANGELA ALEX MD 04/2018 08:09:00 PM EDT - 01/10/2019 07:38:00 PM T [facility] Patient discharged. Outpatient Attender: ANGELA ALEX MD 04/2018 07:20:00 PM EDT - 12/11/2018 08:09:00 PM [facility] Patient discharged. Outpatient Attender: ANGELA ALEX MD 04/2018 12:57:00 PM EDT - 11/10/2018 07:20:00 PM [facility] Patient discharged. Outpatient Attender: ANGELA ALEX MD 04/2018 07:37:00 PM EDT - 10/10/2018 12:57:00 PM [facility] Outpatient Attender: ANGELA ALEX MD 04/2018 08:24:00 PM T - 09/10/2018 07:37:00 PM [facility] Patient discharged. Outpatient Attender: ANGELA ALEX MD 04/2018 03:25:00 PM EDT - 08/10/2018 08:24:00 PM [facility] Outpatient Attender: ANGELA ALEX MD 04/2018 07:38:00 PM EST - 07/11/2018 03:25:00 PM [facility] Immunizations Vaccine Date Status Description Data Source(s) Shingrix 07/25/2019 01:39:00 PM EDT completed Shingrix 2 07/25/19 20 Complete (Reported) Patient [place] ([facility]) Medications Medication Brand Name Start Date Product Form Dose Route Admi nistrative Instructions Pharmacy Instructions Status Indications Reaction Description Data Source(s) Fluorouracil 50 MG/ML Topical Cream Fluorouracil 5 % Fluorou racil 5 % 01/26/2020 12:00:00 AM EDT 1.0 {application} active Fluorouracil 5 % eCW1 ([facility]) Fluorouracil 50 MG/ML Topical Cream Fluorouracil 5 % Fluorou racil 5 % 01/26/2020 12:00:00 AM EDT 1.0 {application} active Fluorouracil 5 % eCW1 ([facility]) Aspirin 81 MG Chewable Tablet Aspirin 81 MG Oral Table t Chewable Aspirin 81 MG Oral Tablet Chewable 12/16/2019 12:00:00 AM EDT 1 active aspirin 81 MG Chewable Tablet [facility]) Sertraline 50 MG Oral Tablet Sertraline HCl 50 MG Oral Tablet Sertraline HCl 50 MG Oral Tablet 11/07/2019 12:00:00 AM EDT 1 act colton sertraline 50 MG Oral Tablet [facility]) NovoFine 30G X 8 MM Miscellaneous NovoFine 30G X 8 MM Miscel laneous 10/31/2019 12:00:00 AM EDT active NovoFine [facility]) Insulin Lispro 25 UNT/ML / Insulin, Prot amine Lispro, Human 75 UNT/ML Injectable Suspension [Humalog Mix] HumaLOG Mix 75/25 (75-25) 100 UNIT/ML Subcutaneous Suspension HumaLOG Mix 75/25 (75-25) 100 UNIT/ML Subcutaneous Sridevi pension 10/31/2019 12:00:00 AM EDT active insulin lispro 25 UNT/ML / insulin lispro protamine, human 75 UNT/ML Injectable Suspension [Humalog Mix] [place] ([facility]) Simvastatin 40 MG Oral Tablet Simvastatin 40 MG Oral Tablet 10/20/2019 12:00:00 AM EDT 1 active simvastatin 40 MG Oral Tablet [facility]) Sertraline 50 MG Oral Tablet Sertraline HCl 50 MG Oral Tablet Sertraline HCl 50 MG Oral Tablet 08/08/2019 12:00:00 AM EDT 1 abo rted sertraline 50 MG Oral Tablet [facility]) Omeprazole 40 MG Delayed Release Oral Ca psule Omeprazole 40 MG Oral Capsule Delayed Release Omeprazole 40 MG Oral Capsule Delayed Release 06/23/19 12:00:00 AM EDT 1 active omeprazole 40 MG Delayed Release Oral Capsule [facility]) carvedilol 6.25 MG Oral Tablet Carvedilol 6.25 MG Oral Tablet Carvedilol 6.25 MG Oral Tablet 06/06/2019 12:00:00 AM EST 1 active carvedilol 6.25 MG Oral Tablet [facility]) carvedilol 6.25 MG Oral Tablet Carvedilol 6.25 MG Oral Tablet Carvedilol 6.25 MG Oral Tablet 06/06/2019 12:00:00 AM EST 1 aborte d carvedilol 6.25 MG Oral Tablet [facility]) Doxycycline Monohydrate 100 MG Oral Capsule Doxycycline [place] hydrate 100 MG 05/19/2019 12:00:00 AM EST active 1 capsule eCW1 ([facility]) Doxycycline Monohydrate 100 MG Oral Capsule Doxycycline [place] hydrate 100 MG 05/19/2019 12:00:00 AM EST 1.0 {capsule} suspend ed Doxycycline Monohydrate 100 MG eCW1 ([facility]) Doxycycline Monohydrate 100 MG Oral Capsule Doxycycline [place] hydrate 100 MG 05/19/2019 12:00:00 AM EST 1.0 {capsule} suspend ed Doxycycline Monohydrate 100 MG eCW1 ([facility]) NovoFine 30G X 8 MM Miscellaneous NovoFine 30G X 8 MM Miscel laneous 05/17/2019 12:00:00 AM EST aborted NovoFin e [place] ([facility]) Insulin Lispro 25 UNT/ML / Insulin, Prot amine Lispro, Human 75 UNT/ML Injectable Suspension [Humalog Mix] HumaLOG Mix 75/25 (75-25) 100 UNIT/ML Subcutaneous Suspension HumaLOG Mix 75/25 (75-25) 100 UNIT/ML Subcutaneous Sridevi pension 05/05/2019 12:00:00 AM EST aborted insulin lispro 25 UNT/ML / insulin lispro protamine, human 75 UNT/ML Injectable Suspension [Humalog Mix] Optimal+ ([facility]) Insulin Lispro 25 UNT/ML / Insulin, Prot amine Lispro, Human 75 UNT/ML Injectable Suspension [Humalog Mix] HumaLOG Mix 75/25 (75-25) 100UNIT/ML Subcutaneous Suspension HumaLOG Mix 75/25 (75-25) 100UNIT/ML Subcutaneous Susp ension 01/10/2019 12:00:00 AM EDT aborted insulin lispro 25 UNT/ML / insulin lispro protamine, human 75 UNT/ML Injectable Suspension [Humalog Mix] Optimal+ ([facility]) Zithromax Z-Dennis 250MG Oral Tablet Zithromax Z-Dennis 250MG Oral Tablet 09/02/2018 12:00:00 AM EDT aborted {6 (azithromycin 250 MG Oral Tablet [Zithromax]) } Pack [Z-DENNIS] [place] ([facility]) Aspirin 81 MG Chewable Tablet Aspirin 81MG Oral Tablet Chewable Aspirin 81MG Oral Tablet Chewable 08/09/2018 12:00:00 AM EDT 1 aborted aspirin 81 MG Chewable Tablet [place] ([facility]) Sertraline 50 MG Oral Tablet Sertraline HCl 50MG Oral Tablet Sertraline HCl 50MG Oral Tablet 08/03/2018 12:00:00 AM EDT 1 abort ed sertraline 50 MG Oral Tablet [place] ([facility]) Potassium Chloride 20 MEQ Extended Relea se Oral Tablet Potassium Chloride ER 20MEQ Oral Tablet Extended Release Potassium Chloride ER 20MEQ Oral Tablet Extended Release 08/03/2018 12:00:00 AM EDT 1 a borted potassium chloride 20 MEQ Extended Release Oral Tablet [place] ([facility]) carvedilol 6.25 MG Oral Tablet Carvedilol 6.25MG Oral Tablet Carvedilol 6.25MG Oral Tablet 05/24/2018 12:00:00 AM EST 1 aborte d carvedilol 6.25 MG Oral Tablet [place] ([facility]) carvedilol 6.25 MG Oral Tablet Carvedilol 6.25MG Oral Tablet Carvedilol 6.25MG Oral Tablet 12/08/2017 12:00:00 AM EDT 1 aborte d carvedilol 6.25 MG Oral Tablet [place] ([facility]) NovoFine 30G X 8 MM MISC NovoFine 30G X 8 MM MISC 11/24/2013 12:00: 00 AM EDT aborted NovoFine [place] ([facility]) Insurance Providers Payer name Policy type / Coverage type Policy ID Covered green party ID Covered green party's relationship to king Policy King Plan Information MEDICARE [id number] SP [id number] R56 [facility] OPTIONS [id number] SP [id number] [facility] [id number] S [id number] R56 MEDICARE [id number] S [id number] R56 [facility] OPTIONS [id number] S [id number] MEDICARE [id number] S [id number] A Medicare Part B Health system Other 0 Se lf 0 Medicare Part B Health system Other 0 Se lf 0 OTHER B TRANSPLANT Self TRANSPLAN T [place] [facility] ESRD PROGRAM [id number] S [id number] AARP HEALTH CARE OPTIONS [id number] S [id number] MEDICARE [id number] S [id number] A AARP U [id number] Self [id number] MEDICARE A [id number] Self [id number] R56 OTHER B TRANSPLANT [place]ER TRANSPLANT [place]ER MEDICARE A [id number] Self [id number] A Aarp Medigap Part B [id number] Self [id number] Medicare [facility] Medicare Primary [id number] Self [id number] Medicare [facility] Medicare Primary [id number] Self [id number] Medicare Part B of [facility] Other 0 Se lf 0 Medicare Part B of [facility] Other 0 Se lf 0 AARP HEALTH CARE OPTIONS [id number] SP [id number] MEDICARE [id number] SP [id number] A AARP HEALTH CARE OPTIONS [id number] SP [id number] Medicare Part B of [facility] Other 0 Se lf 0 MCRB [id number] S [id number] A Medicare Part B of [facility] Other 0 Se lf 0 MEDICARE [id number] SP [id number] A YENNI MEDICARE [id number] SP [id number] AARP O [id number] S [id number] MEDICARE C [id number] S [id number] A Medicare Part B of [facility] Other 0 Se lf 0 YENNI MEDICARE [id number] SP [id number] AARP U [id number] Self [id number] YENNI MEDICARE ADVANTAGE G [id number] Self [id number] YENNI MEDICARE [id number] SP [id number] MEDICAID [id number] SP [id number] MEDICAID [id number] SP [id number] MEDICARE COMPLETE [id number] SP [id number] MEDICARE [id number] SP [id number] A [facility] [facility] [place] [id number] 18 [id number] MEDICARE -O/P [id number] 18 [id number] [place] [id number] 18 [id number] MEDICARE COMPLETE [id number] SP 0 [id number] MEDICARE [id number] SP [id number] [facility] [id number] PT [id number] Problems, Conditions, and Diagnoses Code Display Name Description Problem Type Effective Dates Data Source(s) C44.629 [id number] 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 Problem 05/19/2019 12:00:00 AM EST eCW1 ([facility]) C44.629 [id number] Squamous cell carcinoma of left wrist Pro blem 05/19/2019 12:00:00 AM EST eCW1 ([facility]) C44.629 [id number] Squamous cell carcinoma of left wrist Pro blem 05/19/2019 12:00:00 AM EST eCW1 ([facility]) 585.4 Chronic Kidney Disease Stage 4 Chronic Kidney Disease Stage 4 Problem 12/25/2015 12:00:00 AM EDT - 12/16/2019 12:00:00 AM EDT [place] ([facility]) 585.4 Chronic Kidney Disease Stage 4 Chronic Kidney Disease Stage 4 Problem 12/25/2015 12:00:00 AM EDT - 12/16/2019 12:00:00 AM EDT [place] ([facility]) Z93.3 Colostomy status COLOSTOMY STATUS Diagnosis 04/13/2020 01 :44:00 AM [facility] C18.9 Malignant neoplasm of colon, unspecified MALIGNANT NEOPLASM OF COLON, UNSPECIFIED Diagnosis 04/13/2020 [facility] [facility] N[facility].9 Obstructive and reflux uropathy, unspeci fied OBSTRUCTIVE AND REFLUX UROPATHY, UNSPECIFIED Diagnosis 04/13/2020 01:44:00 AM [facility] pital I25.10 Atherosclerotic heart diseas e of [place] coronary artery without angina pectoris ATHSCL HEART DISEASE OF [place] CORONARY ARTERY W/O Diagnosis 04/13/2020 01:44:00 AM [facility] E10.22 Type 1 diabetes mellitus with diabetic c hronic kidney disease TYPE 1 DIABETES MELLITUS W DIABETIC CHRONIC KIDNEY Diagnosis 04/13/2020 01:44:00 AM [facility] E11.29 Type 2 diabetes mellitus with other diab etic kidney complication TYPE 2 DIABETES MELLITUS W OTH DIABETIC Diagnosis 04/13/2020 01:44:00 AM [facility] D50.9 Iron deficiency anemia, unspecified IRON DEFICIE NCY ANEMIA, UNSPECIFIED Diagnosis 04/13/2020 01:44:00 AM [facility] N18.6 End stage renal disease END STAGE RENAL DISEASE Diagno sis 04/13/2020 01:44:00 AM [facility] Z79.4 group home (current) use of insulin RESIDENTIAL (CU RRENT) USE OF INSULIN Diagnosis 03/13/2020 01:10:00 AM [facility] Surgeries/Procedures Procedure Description Date Indications Data Source(s) Annual wellness visit, includes a person alized prevention plan of service (pps), subsequent visit - subseq't annual wellness exam(1 yr after Initial) 12/16/2019 12:00:00 AM [facility] ([facility]) Annual depression screening, 15 minutes -Annual depression screening- 15 min. 12/16/2019 12:00:00 AM [facility] ([facility]) ADJACENT TISSUE TRANSFER/REARGMT TRUNK 10 CM/< 020 12:00:00 AM EST eCW1 ([facility]) EXC TR-EXT MAL+EDGAR 2.1-3 CM 05/19/2019 12:00:00 AM ES T eCW1 ([facility]) INTMD RPR S/A/T/EXT 2.6-7.5 05/19/2019 12:00:00 AM EST eCW1 ([facility]) TANGNTL BX SKIN SINGLE LES 05/03/2019 12:00:00 AM EST eCW1 ([facility]) TANGNTL BX SKIN EA SEP/ADDL 05/03/2019 12:00:00 AM EST eCW1 ([facility]) Results ID Date Data Source [id number] 06/03/2020 11:00:00 AM EST [facility] Name Value Range Interpretation Code Description Data Marlene rce(s) Supporting Document(s) SARS coronavirus 2 RNA Not Detected [facility] This lab was ordered by [facility] and reported by [facility]. ID Date Data Source [id number] 05/30/2020 10:52:00 AM EST [facility] Name Value Range Interpretation Code Description Data Marlene rce(s) Supporting Document(s) HBsAG NEGATIVE NEGATIVE N [facility] ID Date Data Source [id number] 05/30/2020 10:22:00 AM EST [facility] Name Value Range Interpretation Code Description Data Marlene rce(s) Supporting Document(s) URR 55.00 N [facility] ID Date Data Source [id number] 05/30/2020 10:22:00 AM EST [facility] Name Value Range Interpretation Code Description Data Marlene rce(s) Supporting Document(s) BUNPOST 27 mg/dL 7-23 H [facility] ID Date Data Source [id number] 05/30/2020 10:22:00 AM EST [facility] Name Value Range Interpretation Code Description Data Marlene e(s) Supporting Document(s) GLU 288 mg/dL 70-110 [facility] Patients taking Sulfasalazine may have f alsely depressedGlucose levels. Patients taking Sulfapyridine may havefalsely elevated Glucose levels. Patients should be drawnfor Glucose before the initial administration of eitherdrug. BUNPRE 60 mg/dL 7-23 [facility] CRE 5.380 mg/dL 0.500-1.300 [facility] CHLORIDE 102 mmol/L 99-110 [facility] NA 139 mmol/L 136-147 [facility] POTASSIUM 4.3 mmol/L 3.5-5.1 [facility] TCO2 27 mmol/L 20-33 [facility] ANION GAP 14.3 10.0-20.0 [facility] CA 7.8 mg/dL 8.3-10.7 [facility] NATHALIE 5.3 mg/dL 2.5-4.5 [facility] ALKALINE PHOS 132 U/L 45-117 [facility] ALB 3.4 g/dL 3.5-5.0 [facility] ESRD Dialysis patient Albumin reference range: 2.9-4.4 g/dL ALTI 13 U/L 6-54 [facility] Patients taking Sulfasalazine and/or Sul fapyridine may havefalsely depressed ALT levels. Patients should be drawn forALT before the initial administration of either drug. AST 12 U/L 8-40 [facility] Patients taking Sulfasalazine and/or Sul fapyridine may havefalsely depressed AST levels. Patients should be drawn forAST before the initial administration of either drug. ID Date Data Source [id number] 05/30/2020 09:55:00 AM EST [facility] Name Value Range Interpretation Code Description Data Marlene rce(s) Supporting Document(s) WBC 4.50 x10E3/uL 4.0-10.5 [facility] RBC 3.55 x10E6/uL 4.70-6.00 [facility] Hemoglobin 10.4 g/dL 14.0-18.0 [facility] Hematocrit 31.3 % 42.0-52.0 [facility] MCV 88.2 fL 81.0-99.0 [facility] MCH 29.3 pg 27.0-31.0 [facility] MCHC 33.2 g/dL 32.7-35.6 [facility] RDW 16.5 % 11.5-14.0 [facility] Platelet count 169 x10E3/uL 150-450 [facility] ital MPV 9.2 fl 6.9-9.5 [facility] Neutrophils 68.6 % 34-64 [facility] Lymphocytes 18.2 % 25-45 [facility] Monocytes 10.7 % 1.7-10.6 [facility] Eosinophils 1.6 % 0.4-7.0 [facility] Basophils 0.7 % 0.1-2.0 [facility] Imm. Gran. 0.2 % 0.1-2.0 [facility] Abs. Neutro. 3.09 x10E3/uL 1.2-7.6 N [facility] Abs. Lymph. 0.82 x10E3/uL 1.0-3.5 [facility] Abs. [place]. 0.48 x10E3/uL 0.1-1.0 [facility] Abs. Eosin. 0.07 x10E3/uL 0.1-0.7 L [facility] Abs. Baso. 0.03 x10E3/uL 0.0-0.1 [facility] Abs. Imm. Gran. 0.01 x10E3/uL 0.0-0.1 N [facility] spital ANRBC% 0 % 0 N [facility] ID Date Data Source [id number] 04/28/2020 10:00:00 AM EST [facility] Name Value Range Interpretation Code Description Data Marlene rce(s) Supporting Document(s) SARS coronavirus 2 RNA Detected [facility] This lab was ordered by [facility] and reported by [facility]. ID Date Data Source [id number] 04/24/2020 10:48:00 AM EST [facility] Name Value Range Interpretation Code Description Data Marlene rce(s) Supporting Document(s) HEP C Non reactive Nonreactive [facility] ID Date Data Source [id number] 04/24/2020 10:48:00 AM EST [facility] Name Value Range Interpretation Code Description Data Marlene rce(s) Supporting Document(s) PTH 505.8 pg/mL 18.4-80.1 H [facility] ID Date Data Source [id number] 04/24/2020 10:48:00 AM EST [facility] Name Value Range Interpretation Code Description Data Marlene rce(s) Supporting Document(s) HBsAG NEGATIVE NEGATIVE N [facility] ID Date Data Source [id number] 04/24/2020 07:09:00 AM EST [facility] Performed at: [facility] [address] [id number] Director: Mary Beth Macario MD, Phone: [phone] at: [facility] [address] [id number] Director: Mary Beth Macario MD, Phone: [phone] Name Value Range Interpretation Code Description Data Marlene rce(s) Supporting Document(s) HBsAB <3.1 mIU/mL Immunity>9.9 [facility] Status of Immunity Anti-HBs Level Inconsistent with Immunity 0.0 - 9.9Consistent with Immunity >9.9 ID Date Data Source [id number] 04/24/2020 07:09:00 AM EST [facility] Performed at: RN - [facility] [id number] [place], [place] [id number] Director: Mary Beth Macario MD, Phone: [phone] at: [facility] [address] [id number] Director: Mary Beth Macario MD, Phone: [phone] Name Value Range Interpretation Code Description Data Marlene rce(s) Supporting Document(s) HEP B CORE IgM Negative Negative [facility] ID Date Data Source [id number] 04/23/2020 12:35:00 PM EST [facility] Name Value Range Interpretation Code Description Data Marlene rce(s) Supporting Document(s) HbA1C 7.60 % 3.8-5.6 H [facility] Suggested Diagnosis HbA1c% Diabet ic >/= 6.5Prediabetes 5.7%-6.4%Normal < 5.7% ID Date Data Source [id number] 04/23/2020 12:22:00 PM EST [facility] Name Value Range Interpretation Code Description Data Marlene rce(s) Supporting Document(s) FE 54 ug/dL 42-175 N [facility] Patients treated with metal-binding drug s(i.e. Deferoxamine) may have depressed iron values aschelated iron may not properly react in the iron assay. UNBOUND IRON BC 169 ug/dL 130-375 [facility] TOTAL IRON BC 223.0 ug/dL 250-400 [facility] IRON SAT. 24.2 % 30-35 L [facility] ID Date Data Source [id number] 04/23/2020 12:22:00 PM EST [facility] Name Value Range Interpretation Code Description Data Marlene rce(s) Supporting Document(s) URR 54.84 N [facility] ID Date Data Source [id number] 04/23/2020 12:22:00 PM EST [facility] Name Value Range Interpretation Code Description Data Marlene rce(s) Supporting Document(s) BUNPOST 28 mg/dL 7-23 [facility] ID Date Data Source [id number] 04/23/2020 12:22:00 PM EST [facility] Name Value Range Interpretation Code Description Data Marlene rce(s) Supporting Document(s) CHOL 106 mg/dL 100-200 [facility] TRIG 243 mg/dL 30-190 [facility] HDL 27 mg/dL 35-65 [facility] LDL DIRECT 49 mg/dL 0-100 [facility] VLDL 30 mg/dL 0-100 [facility] ID Date Data Source [id number] 04/23/2020 12:22:00 PM EST [facility] Name Value Range Interpretation Code Description Data Marlene rce(s) Supporting Document(s) GLU 188 mg/dL 70-110 [facility] Patients taking Sulfasalazine may have f alsely depressedGlucose levels. Patients taking Sulfapyridine may havefalsely elevated Glucose levels. Patients should be drawnfor Glucose before the initial administration of eitherdrug. BUNPRE 62 mg/dL 7-23 [facility] CRE 5.950 mg/dL 0.500-1.300 [facility] CHLORIDE 101 mmol/L 99-110 [facility] NA 140 mmol/L 136-147 [facility] POTASSIUM 4.2 mmol/L 3.5-5.1 [facility] TCO2 26 mmol/L 20-33 [facility] ANION GAP 17.2 10.0-20.0 [facility] CA 8.0 mg/dL 8.3-10.7 [facility] NATHALIE 5.1 mg/dL 2.5-4.5 [facility] ALKALINE PHOS 106 U/L 45-117 [facility] ALB 3.3 g/dL 3.5-5.0 [facility] ESRD Dialysis patient Albumin reference range: 2.9-4.4 g/dL ALTI 14 U/L 6-54 [facility] Patients taking Sulfasalazine and/or Sul fapyridine may havefalsely depressed ALT levels. Patients should be drawn forALT before the initial administration of either drug. AST 10 U/L 8-40 [facility] Patients taking Sulfasalazine and/or Sul fapyridine may havefalsely depressed AST levels. Patients should be drawn forAST before the initial administration of either drug. ID Date Data Source [id number] 04/23/2020 12:15:00 PM EST [facility] Name Value Range Interpretation Code Description Data Marlene rce(s) Supporting Document(s) MAKENZIE 66.1 ng/mL 26.0-388.0 [facility] ID Date Data Source [id number] 04/23/2020 12:00:00 PM EST [facility] Name Value Range Interpretation Code Description Data Marlene rce(s) Supporting Document(s) WBC 4.94 x10E3/uL 4.0-10.5 [facility] RBC 3.70 x10E6/uL 4.70-6.00 [facility] Hemoglobin 10.9 g/dL 14.0-18.0 [facility] Hematocrit 32.7 % 42.0-52.0 L [facility] MCV 88.4 fL 81.0-99.0 [facility] MCH 29.5 pg 27.0-31.0 [facility] MCHC 33.3 g/dL 32.7-35.6 [facility] RDW 16.3 % 11.5-14.0 [facility] Platelet count 149 x10E3/uL 150-450 L [facility] ital MPV 9.8 fl 6.9-9.5 [facility] Neutrophils 67.7 % 34-64 [facility] Lymphocytes 19.4 % 25-45 [facility] Monocytes 10.1 % 1.7-10.6 [facility] Eosinophils 2.0 % 0.4-7.0 [facility] Basophils 0.8 % 0.1-2.0 [facility] Imm. Gran. 0.0 % 0.1-2.0 L [facility] Abs. Neutro. 3.34 x10E3/uL 1.2-7.6 [facility] Lymph. 0.96 x10E3/uL 1.0-3.5 [facility] Abs. [place]. 0.50 x10E3/uL 0.1-1.0 [facility] Abs. Eosin. 0.10 x10E3/uL 0.1-0.7 [facility] Abs. Baso. 0.04 x10E3/uL 0.0-0.1 [facility] Abs. Imm. Gran. 0.00 x10E3/uL 0.0-0.1 [facility] ANRBC% 0 % 0 [facility] ID Date Data Source [id number] 03/28/2020 12:39:00 PM [facility] Does the pt. have a limb restriction? YL /R-> LeftRestricted limb verified Y Name Value Range Interpretation Code Description Data Marlene rce(s) Supporting Document(s) HbA1C 6.80 % 3.8-5.6 H [facility] Suggested Diagnosis HbA1c% Diabet ic >/= 6.5Prediabetes 5.7%-6.4%Normal < 5.7% ID Date Data Source [id number] 03/28/2020 [facility]:10[facility] the pt[facility] have a limb restriction? YL /R-> LeftRestricted limb verified Y Name Value Range Interpretation Code Description Data Marlene rce(s) Supporting Document(s) URR 56.90 N [facility] ID Date Data Source [id number] 03/28/2020 12:10:00 PM EST [facility] Does the pt. have a limb restriction? YL /R-> LeftRestricted limb verified Y Name Value Range Interpretation Code Description Data Marlene rce(s) Supporting Document(s) BUNPOST 25 mg/dL 7-23 [facility] ID Date Data Source [id number] 03/28/2020 12:10:00 PM EST [facility] Does the pt. have a limb restriction? YL /R-> LeftRestricted limb verified Y Name Value Range Interpretation Code Description Data Marlene rce(s) Supporting Document(s) GLU 120 mg/dL 70-110 [facility] Patients taking Sulfasalazine may have f alsely depressedGlucose levels. Patients taking Sulfapyridine may havefalsely elevated Glucose levels. Patients should be drawnfor Glucose before the initial administration of eitherdrug. BUNPRE 58 mg/dL 7-23 [facility] CRE 4.610 mg/dL 0.500-1.300 PH [facility] CHLORIDE 106 mmol/L 99-110 [facility] NA 141 mmol/L 136-147 [facility] POTASSIUM 4.2 mmol/L 3.5-5.1 [facility] TCO2 28 mmol/L 20-33 [facility] ANION GAP 11.2 10.0-20.0 [facility] CA 8.1 mg/dL 8.3-10.7 [facility] NATHALIE 4.4 mg/dL 2.5-4.5 [facility] ALKALINE PHOS 92 U/L 45-117 [facility] ALB 3.4 g/dL 3.5-5.0 [facility] ESRD Dialysis patient Albumin reference range: 2.9-4.4 g/dL ALTI 11 U/L 6-54 [facility] Patients taking Sulfasalazine and/or Sul fapyridine may havefalsely depressed ALT levels. Patients should be drawn forALT before the initial administration of either drug. AST 14 U/L 8-40 [facility] Patients taking Sulfasalazine and/or Sul fapyridine may havefalsely depressed AST levels. Patients should be drawn forAST before the initial administration of either drug. ID Date Data Source [id number] 03/28/2020 11:33:[address] the pt. have a limb restriction? YL /R-> LeftRestricted limb verified Y Name Value Range Interpretation Code Description Data Marlene rce(s) Supporting Document(s) WBC 4.49 x10E3/uL 4.0-10.5 [facility] RBC 3.74 x10E6/uL 4.70-6.00 [facility] Hemoglobin 10.9 g/dL 14.0-18.0 [facility] Hematocrit 33.4 % 42.0-52.0 [facility] MCV 89.3 fL 81.0-99.0 [facility] MCH 29.1 pg 27.0-31.0 [facility] MCHC 32.6 g/dL 32.7-35.6 [facility] RDW 16.0 % 11.5-14.0 [facility] Platelet count 163 x10E3/uL 150-450 [facility] MPV 9.7 fl 6.9-9.5 [facility] Neutrophils 68.3 % 34-64 H [facility] Lymphocytes 17.8 % 25-45 L [facility] Monocytes 11.4 % 1.7-10.6 H [facility] Eosinophils 1.6 % 0.4-7.0 [facility] Basophils 0.7 % 0.1-2.0 [facility] Imm. Gran. 0.2 % 0.1-2.0 N [facility] Abs. Neutro. 3.07 x10E3/uL 1.2-7.6 [facility] Abs. Lymph. 0.80 x10E3/uL 1.0-3.5 [facility] Abs. [place]. 0.51 x10E3/uL 0.1-1.0 [facility] Eosin. 0.07 x10E3/uL 0.1-0.7 [facility] Abs. Baso. 0.03 x10E3/uL 0.0-0.1 [facility] Abs. Imm. Gran. 0.01 x10E3/uL 0.0-0.1 N [facility] spital ANRBC% 0 % 0 [facility] ID Date Data Source [id number] 02/29/2020 12:26:00 PM EST [facility] Name Value Range Interpretation Code Description Data Marlene rce(s) Supporting Document(s) URR 55.10 [facility] ID Date Data Source [id number] 02/29/2020 12:26:00 PM EST [facility] Name Value Range Interpretation Code Description Data Marlene rce(s) Supporting Document(s) BUNPOST 22 mg/dL 7-23 [facility] ID Date Data Source [id number] 02/29/2020 12:26:00 PM EST [facility] Name Value Range Interpretation Code Description Data Marlene rce(s) Supporting Document(s) GLU 171 mg/dL 70-110 [facility] Patients taking Sulfasalazine may have f alsely depressedGlucose levels. Patients taking Sulfapyridine may havefalsely elevated Glucose levels. Patients should be drawnfor Glucose before the initial administration of eitherdrug. BUNPRE 49 mg/dL 7-23 [facility] CRE 5.010 mg/dL 0.500-1.300 [facility] CHLORIDE 107 mmol/L 99-110 [facility] NA 141 mmol/L 136-147 [facility] POTASSIUM 4.7 mmol/L 3.5-5.1 [facility] TCO2 27 mmol/L 20-33 [facility] ANION GAP 11.7 10.0-20.0 [facility] CA 8.1 mg/dL 8.3-10.7 [facility] NATHALIE 3.7 mg/dL 2.5-4.5 [facility] ALKALINE PHOS 105 U/L 45-117 [facility] ALB 3.4 g/dL 3.5-5.0 [facility] ESRD Dialysis patient Albumin reference range: 2.9-4.4 g/dL ALTI 12 U/L 6-54 [facility] Patients taking Sulfasalazine and/or Sul fapyridine may havefalsely depressed ALT levels. Patients should be drawn forALT before the initial administration of either drug. AST 14 U/L 8-40 [facility] Patients taking Sulfasalazine and/or Sul fapyridine may havefalsely depressed AST levels. Patients should be drawn forAST before the initial administration of either drug. ID Date Data Source [id number] 02/29/2020 12:06:00 PM EST [facility] Name Value Range Interpretation Code Description Data Marlene rce(s) Supporting Document(s) WBC 3.86 x10E3/uL 4.0-10.5 [facility] RBC 3.75 x10E6/uL 4.70-6.00 [facility] Hemoglobin 11.1 g/dL 14.0-18.0 [facility] Hematocrit 34.3 % 42.0-52.0 [facility] MCV 91.5 fL 81.0-99.0 [facility] MCH 29.6 pg 27.0-31.0 [facility] MCHC 32.4 g/dL 32.7-35.6 [facility] RDW 16.3 % 11.5-14.0 [facility] Platelet count 165 x10E3/uL 150-450 [facility] ital MPV 9.6 fl 6.9-9.5 H [facility] Neutrophils 64.8 % 34-64 [facility] Lymphocytes 20.5 % 25-45 L [facility] Monocytes 11.1 % 1.7-10.6 [facility] Eosinophils 2.6 % 0.4-7.0 [facility] Basophils 0.5 % 0.1-2.0 [facility] Imm. Gran. 0.5 % 0.1-2.0 N [facility] Abs. Neutro. 2.50 x10E3/uL 1.2-7.6 [facility] Abs. Lymph. 0.79 x10E3/uL 1.0-3.5 [facility] Abs. [place]. 0.43 x10E3/uL 0.1-1.0 [facility] Abs. Eosin. 0.10 x10E3/uL 0.1-0.7 [facility] Abs. Baso. 0.02 x10E3/uL 0.0-0.1 [facility] Abs. Imm. Gran. 0.02 x10E3/uL 0.0-0.1 [facility] ANRBC% 0 % 0 [facility] ID Date Data Source [id number] 01/25/2020 02:14:00 PM EDT [facility] Name Value Range Interpretation Code Description Data Marlene rce(s) Supporting Document(s) PTH 398.8 pg/mL 18.4-80.1 [facility] ID Date Data Source [id number] 01/25/2020 12:55:00 PM EDT [facility] Name Value Range Interpretation Code Description Data Marlene rce(s) Supporting Document(s) URR 56.45 N [facility] ID Date Data Source [id number] 01/25/2020 12:55:00 PM EDT [facility] Name Value Range Interpretation Code Description Data Marlene rce(s) Supporting Document(s) BUNPOST 27 mg/dL 7-23 [facility] ID Date Data Source [id number] 01/25/2020 12:55:00 PM EDT [facility] amy Name Value Range Interpretation Code Description Data Marlene rce(s) Supporting Document(s) FE 56 ug/dL 42-175 [facility] Patients treated with metal-binding drug s(i.e. Deferoxamine) may have depressed iron values aschelated iron may not properly react in the iron assay. UNBOUND IRON BC 171 ug/dL 130-375 N [facility] al TOTAL IRON BC 227.0 ug/dL 250-400 [facility] % IRON SAT. 24.6 % 30-35 [facility] ID Date Data Source [id number] 01/25/2020 12:55:00 PM EDT [facility] Name Value Range Interpretation Code Description Data Marlene rce(s) Supporting Document(s) GLU 163 mg/dL 70-110 [facility] Patients taking Sulfasalazine may have f alsely depressedGlucose levels. Patients taking Sulfapyridine may havefalsely elevated Glucose levels. Patients should be drawnfor Glucose before the initial administration of eitherdrug. BUNPRE 62 mg/dL 7-23 [facility] CRE 5.430 mg/dL 0.500-1.300 PH [facility] HISTORY OF A HIGH CREATININE AND IS A DI ALYSIS PATIENT. CHLORIDE 102 mmol/L 99-110 [facility] NA 136 mmol/L 136-147 [facility] POTASSIUM 4.2 mmol/L 3.5-5.1 [facility] TCO2 26 mmol/L 20-33 [facility] ANION GAP 12.2 10.0-20.0 [facility] CA 8.0 mg/dL 8.3-10.7 [facility] NATHALIE 5.3 mg/dL 2.5-4.5 [facility] ALKALINE PHOS 111 U/L 45-117 [facility] ALB 3.4 g/dL 3.5-5.0 [facility] ESRD Dialysis patient Albumin reference range: 2.9-4.4 g/dL ALTI 14 U/L 6-54 [facility] Patients taking Sulfasalazine and/or Sul fapyridine may havefalsely depressed ALT levels. Patients should be drawn forALT before the initial administration of either drug. AST 13 U/L 8-40 [facility] Patients taking Sulfasalazine and/or Sul fapyridine may havefalsely depressed AST levels. Patients should be drawn forAST before the initial administration of either drug. ID Date Data Source [id number] 01/25/2020 12:41:00 PM [facility] Name Value Range Interpretation Code Description Data Marlene rce(s) Supporting Document(s) MAKENZIE 84.7 ng/mL 26.0-388.0 [facility] ID Date Data Source [id number] 01/25/2020 12:15:00 [facility] Name Value Range Interpretation Code Description Data Marlene rce(s) Supporting Document(s) WBC 4.61 x10E3/uL 4.0-10.5 [facility] RBC 3.65 x10E6/uL 4.70-6.00 [facility] Hemoglobin 10.8 g/dL 14.0-18.0 [facility] Hematocrit 32.5 % 42.0-52.0 [facility] MCV 89.0 fL 81.0-99.0 [facility] MCH 29.6 pg 27.0-31.0 [facility] MCHC 33.2 g/dL 32.7-35.6 [facility] RDW 15.8 % 11.5-14.0 [facility] Platelet count 154 x10E3/uL 150-450 N [facility] ital MPV 9.5 fl 6.9-9.5 [facility] Neutrophils 66.2 % 34-64 [facility] Lymphocytes 19.7 % 25-45 L [facility] Monocytes 10.6 % 1.7-10.6 [facility] Eosinophils 2.2 % 0.4-7.0 [facility] Basophils 0.9 % 0.1-2.0 [facility] Imm. Gran. 0.4 % 0.1-2.0 [facility] Abs. Neutro. 3.05 x10E3/uL 1.2-7.6 [facility] Abs. Lymph. 0.91 x10E3/uL 1.0-3.5 [facility] Abs. [place]. 0.49 x10E3/uL 0.1-1.0 [facility] Abs. Eosin. 0.10 x10E3/uL 0.1-0.7 [facility] Abs. Baso. 0.04 x10E3/uL 0.0-0.1 [facility] Abs. Imm. Gran. 0.02 x10E3/uL 0.0-0.1 N [facility] spital ANRBC% 0 % 0 N [facility] ID Date Data Source [id number] 12/28/2019 12:48:00 PM EDT [facility] Name Value Range Interpretation Code Description Data Marlene rce(s) Supporting Document(s) CHOL 109 mg/dL 100-200 [facility] TRIG 233 mg/dL 30-190 [facility] HDL 28 mg/dL 35-65 [facility] LDL DIRECT 52 mg/dL 0-100 [facility] VLDL 29 mg/dL 0-100 [facility] ID Date Data Source [id number] 12/28/2019 12:48:00 PM EDT [facility] Name Value Range Interpretation Code Description Data Marlene rce(s) Supporting Document(s) URR 55.74 [facility] ID Date Data Source [id number] 12/28/2019 12:48:00 PM EDT [facility] Name Value Range Interpretation Code Description Data Marlene rce(s) Supporting Document(s) BUNPOST 27 mg/dL 7-23 [facility] ID Date Data Source [id number] 12/28/2019 12:48:00 PM EDT [facility] Name Value Range Interpretation Code Description Data Marlene rce(s) Supporting Document(s) GLU 326 mg/dL 70-110 [facility] Patients taking Sulfasalazine may have f alsely depressedGlucose levels. Patients taking Sulfapyridine may havefalsely elevated Glucose levels. Patients should be drawnfor Glucose before the initial administration of eitherdrug. BUNPRE 61 mg/dL 7-23 [facility] CRE 5.020 mg/dL 0.500-1.300 [facility] CHLORIDE 100 mmol/L 99-110 [facility] NA 138 mmol/L 136-147 [facility] POTASSIUM 4.6 mmol/L 3.5-5.1 [facility] TCO2 26 mmol/L 20-33 [facility] ANION GAP 16.6 10.0-20.0 [facility] CA 8.0 mg/dL 8.3-10.7 [facility] NATHALIE 4.7 mg/dL 2.5-4.5 [facility] ALKALINE PHOS 134 U/L 45-117 [facility] ALB 3.3 g/dL 3.5-5.0 [facility] ESRD Dialysis patient Albumin reference range: 2.9-4.4 g/dL ALTI 13 U/L 6-54 [facility] Patients taking Sulfasalazine and/or Sul fapyridine may havefalsely depressed ALT levels. Patients should be drawn forALT before the initial administration of either drug. AST 15 U/L 8-40 [facility] Patients taking Sulfasalazine and/or Sul fapyridine may havefalsely depressed AST levels. Patients should be drawn forAST before the initial administration of either drug. ID Date Data Source [id number] 12/28/2019 12:28:00 PM EDT [facility] Name Value Range Interpretation Code Description Data Marlene rce(s) Supporting Document(s) WBC 4.04 x10E3/uL 4.0-10.5 [facility] RBC 3.60 x10E6/uL 4.70-6.00 [facility] Hemoglobin 10.7 g/dL 14.0-18.0 [facility] Hematocrit 32.5 % 42.0-52.0 [facility] MCV 90.3 fL 81.0-99.0 [facility] MCH 29.7 pg 27.0-31.0 [facility] MCHC 32.9 g/dL 32.7-35.6 [facility] RDW 15.6 % 11.5-14.0 [facility] Platelet count 154 x10E3/uL 150-450 [facility] ital MPV 9.4 fl 6.9-9.5 [facility] Neutrophils 68.9 % 34-64 H [facility] Lymphocytes 16.8 % 25-45 L [facility] Monocytes 11.1 % 1.7-10.6 H [facility] Eosinophils 2.2 % 0.4-7.0 N [facility] Basophils 0.5 % 0.1-2.0 N [facility] Imm. Gran. 0.5 % 0.1-2.0 N [facility] Abs. Neutro. 2.78 x10E3/uL 1.2-7.6 [facility] Abs. Lymph. 0.68 x10E3/uL 1.0-3.5 [facility] Abs. [place]. 0.45 x10E3/uL 0.1-1.0 [facility] Abs. Eosin. 0.09 x10E3/uL 0.1-0.7 [facility] Abs. Baso. 0.02 x10E3/uL 0.0-0.1 [facility] Abs. Imm. Gran. 0.02 x10E3/uL 0.0-0.1 N [facility] spital ANRBC% 0 % 0 N [facility] ID Date Data Source [id number] 12/22/2019 02:07:00 PM EDT [facility] Name Value Range Interpretation Code Description Data Marlene rce(s) Supporting Document(s) SARS coronavirus 2 RNA panel N [facility] This lab was ordered by [facility] and reported by [facility]. ID Date Data Source [id number] 11/23/2019 07:14:00 PM EDT [facility] Ht (IN INCHES): 70.8WT (KG): 111Patient Height in Inches? 70.8WHAT IS THE PATIENT'S WEIGHT IN POUNDS? 245Total volume 900WHAT IS THE NUMBER OF HOURS OF COLLECTION? 24 Name Value Range Interpretation Code Description Data Marlene rce(s) Supporting Document(s) UCTIME 1440 MIN N [facility] CCRECL 14.5 ML/MIN 85-125 L [facility] UCRECL 19.2 ML/MIN 85-125 L [facility] UR,UREA NITROGE 2.47 G/24HR 6-17 [facility] URINE BUN 274 mg/dL N [facility] CREAT. URINE 157.0 mg/dL [facility] TV 900 mL [facility] UR PROTEIN 24H 1779.3 MG/24HR 10-140 H [facility] spital URINE TOT PROT. 197.7 mg/dL [facility] ital UCRE24 1.41 G/24HR 0.8-1.6 [facility] ID Date Data Source [id number] 11/23/2019 07:13:00 PM EDT [facility] Ht (IN INCHES): 70.8WT (KG): 111Patient Height in Inches? 70.8WHAT IS THE PATIENT'S WEIGHT IN POUNDS? 245Total volume 900WHAT IS THE NUMBER OF HOURS OF COLLECTION? 24 Name Value Range Interpretation Code Description Data Marlene rce(s) Supporting Document(s) URR 57.69 N [facility] ID Date Data Source [id number] 11/23/2019 07:13:00 PM EDT [facility] Ht (IN INCHES): 70.8WT (KG): 111Patient Height in Inches? 70.8WHAT IS THE PATIENT'S WEIGHT IN POUNDS? 245Total volume 900WHAT IS THE NUMBER OF HOURS OF COLLECTION? 24 Name Value Range Interpretation Code Description Data Marlene rce(s) Supporting Document(s) BUNPOST 22 mg/dL 7- [facility] ID Date Data Source [id number] 11/23/2019 07:13:00 PM EDT [facility] Ht (IN INCHES): 70.8WT (KG): 111Patient Height in Inches? 70.8WHAT IS THE PATIENT'S WEIGHT IN POUNDS? 245Total volume 900WHAT IS THE NUMBER OF HOURS OF COLLECTION? 24 Name Value Range Interpretation Code Description Data Marlene rce(s) Supporting Document(s) GLU 289 mg/dL 70-110 [facility] Patients taking Sulfasalazine may have f alsely depressedGlucose levels. Patients taking Sulfapyridine may havefalsely elevated Glucose levels. Patients should be drawnfor Glucose before the initial administration of eitherdrug. BUNPRE 52 mg/dL 7-23 [facility] CRE 5.110 mg/dL 0.500-1.300 [facility] HISTORY OF A HIGH CREATININE AND IS A DI ALYSIS PATIENT. CHLORIDE 103 mmol/L 99-110 [facility] NA 140 mmol/L 136-147 [facility] POTASSIUM 4.6 mmol/L 3.5-5.1 [facility] TCO2 23 mmol/L 20-33 [facility] ANION GAP 18.6 10.0-20.0 [facility] CA 8.2 mg/dL 8.3-10.7 [facility] NATHALIE 4.0 mg/dL 2.5-4.5 [facility] ALKALINE PHOS 107 U/L 45-117 [facility] ALB 3.3 g/dL 3.5-5.0 [facility] ESRD Dialysis patient Albumin reference range: 2.9-4.4 g/dL ALTI 16 U/L 6-54 [facility] Patients taking Sulfasalazine and/or Sul fapyridine may havefalsely depressed ALT levels. Patients should be drawn forALT before the initial administration of either drug. AST 12 U/L 8-40 [facility] Patients taking Sulfasalazine and/or Sul fapyridine may havefalsely depressed AST levels. Patients should be drawn forAST before the initial administration of either drug. ID Date Data Source [id number] 11/23/2019 11:44:00 AM EDT [facility] amy Name Value Range Interpretation Code Description Data Marlene rce(s) Supporting Document(s) WBC 3.63 x10E3/uL 4.0-10.5 [facility] RBC 3.50 x10E6/uL 4.70-6.00 [facility] Hemoglobin 10.5 g/dL 14.0-18.0 [facility] Hematocrit 32.1 % 42.0-52.0 [facility] MCV 91.7 fL 81.0-99.0 [facility] MCH 30.0 pg 27.0-31.0 [facility] MCHC 32.7 g/dL 32.7-35.6 [facility] RDW 16.8 % 11.5-14.0 [facility] Platelet count 142 x10E3/uL 150-450 [facility] MPV 9.1 fl 6.9-9.5 [facility] Neutrophils 60.0 % 34-64 N [facility] Lymphocytes 24.0 % 25-45 L [facility] Monocytes 11.8 % 1.7-10.6 H [facility] Eosinophils 2.8 % 0.4-7.0 N [facility] Basophils 1.1 % 0.1-2.0 N [facility] Imm. Gran. 0.3 % 0.1-2.0 N [facility] Abs. Neutro. 2.2 x10E3/uL 1.2-7.6 [facility] Abs. Lymph. 0.9 x10E3/uL 1.0-3.5 [facility] Abs. [place]. 0.4 x10E3/uL 0.1-1.0 N [facility] Abs. Eosin. 0.1 x10E3/uL 0.1-0.7 [facility] Abs. Baso. 0.0 x10E3/uL 0.0-0.1 N [facility] Abs. Imm. Gran. 0.0 x10E3/uL 0.0-0.1 N [facility] pital ANRBC% 0 % 0 N [facility] ID Date Data Source [id number] 10/25/2019 01:27:00 PM EDT [facility] Name Value Range Interpretation Code Description Data Marlene rce(s) Supporting Document(s) PTH 403.2 pg/mL 18.4-80.1 [facility] ID Date Data Source [id number] 10/25/2019 11:49:00 AM EDT [facility] Name Value Range Interpretation Code Description Data Marlene rce(s) Supporting Document(s) WBC 3.77 x10E3/uL 4.0-10.5 L [facility] RBC 3.76 x10E6/uL 4.70-6.00 [facility] Hemoglobin 11.1 g/dL 14.0-18.0 [facility] Hematocrit 33.7 % 42.0-52.0 [facility] MCV 89.6 fL 81.0-99.0 [facility] MCH 29.5 pg 27.0-31.0 [facility] MCHC 32.9 g/dL 32.7-35.6 [facility] RDW 16.4 % 11.5-14.0 [facility] Platelet count 151 x10E3/uL 150-450 N [facility] ital MPV 9.3 fl 6.9-9.5 [facility] Neutrophils 58.6 % 34-64 [facility] Lymphocytes 25.5 % 25-45 [facility] Monocytes 11.4 % 1.7-10.6 [facility] Eosinophils 3.4 % 0.4-7.0 [facility] Basophils 0.8 % 0.1-2.0 [facility] Imm. Gran. 0.3 % 0.1-2.0 [facility] Abs. Neutro. 2.2 x10E3/uL 1.2-7.6 N [facility] al Abs. Lymph. 1.0 x10E3/uL 1.0-3.5 N [facility] l Abs. [place]. 0.4 x10E3/uL 0.1-1.0 N [facility] Abs. Eosin. 0.1 x10E3/uL 0.1-0.7 N [facility] l Abs. Baso. 0.0 x10E3/uL 0.0-0.1 [facility] Abs. Imm. Gran. 0.0 x10E3/uL 0.0-0.1 N [facility] pital ANRBC% 0 % 0 [facility] ID Date Data Source [id number] 10/25/2019 06:51:00 PM EDT [facility] Name Value Range Interpretation Code Description Data Marlene rce(s) Supporting Document(s) FE 71 ug/dL 42-175 [facility] Patients treated with metal-binding ana gs(i.e. Deferoxamine) may have depressed iron values aschelated iron may not properly react in the iron assay. UNBOUND IRON BC 160 ug/dL 130-375 [facility] TOTAL IRON BC 231.0 ug/dL 250-400 L [facility] al % IRON SAT. 30.7 % 30-35 [facility] ID Date Data Source [id number] 10/25/2019 06:51:00 PM EDT [facility] Name Value Range Interpretation Code Description Data Marlene rce(s) Supporting Document(s) URR 57.45 [facility] ID Date Data Source [id number] 10/25/2019 06:51:00 PM EDT [facility] Name Value Range Interpretation Code Description Data Marlene rce(s) Supporting Document(s) BUNPOST 20 mg/dL 7-23 [facility] ID Date Data Source [id number] 10/25/2019 06:51:00 PM EDT [facility] Name Value Range Interpretation Code Description Data Marlene rce(s) Supporting Document(s) CHOL 119 mg/dL 100-200 [facility] TRIG 228 mg/dL 30-190 [facility] HDL 29 mg/dL 35-65 [facility] LDL DIRECT 54 mg/dL 0-100 [facility] VLDL 36 mg/dL 0-100 [facility] ID Date Data Source [id number] 10/25/2019 06:51:00 PM EDT [facility] amy Name Value Range Interpretation Code Description Data Marlene rce(s) Supporting Document(s) GLU 147 mg/dL 70-110 [facility] Patients taking Sulfasalazine may have f alsely depressedGlucose levels. Patients taking Sulfapyridine may havefalsely elevated Glucose levels. Patients should be drawnfor Glucose before the initial administration of eitherdrug. BUNPRE 47 mg/dL 7-23 [facility] CRE 4.530 mg/dL 0.500-1.300 [facility] CHLORIDE 100 mmol/L 99-110 [facility] NA 138 mmol/L 136-147 [facility] POTASSIUM 4.6 mmol/L 3.5-5.1 [facility] TCO2 27 mmol/L 20-33 [facility] ANION GAP 15.6 10.0-20.0 [facility] CA 8.4 mg/dL 8.3-10.7 [facility] NATHALIE 4.3 mg/dL 2.5-4.5 [facility] ALKALINE PHOS 95 U/L 45-117 [facility] ALB 3.4 g/dL 3.5-5.0 [facility] ESRD Dialysis patient Albumin reference range: 2.9-4.4 g/dL ALTI 15 U/L 6-54 N [facility] Patients taking Sulfasalazine and/or Sul fapyridine may havefalsely depressed ALT levels. Patients should be drawn forALT before the initial administration of either drug. AST 14 U/L 8-40 [facility] Patients taking Sulfasalazine and/or Sul fapyridine may havefalsely depressed AST levels. Patients should be drawn forAST before the initial administration of either drug. ID Date Data Source [id number] 10/25/2019 01:02:00 PM EDT [facility] Name Value Range Interpretation Code Description Data Marlene rce(s) Supporting Document(s) HbA1C 7.40 % 3.8-5.6 [facility] Please note: new test methodology requ ired change inreference range effective 09/16/19 ID Date Data Source [id number] 10/25/2019 12:30:00 PM EDT [facility] Name Value Range Interpretation Code Description Data Marlene rce(s) Supporting Document(s) MAKENZIE 118.9 ng/mL 26.0-388.0 [facility] ID Date Data Source [id number] 09/26/2019 01:52:00 PM [facility]T [facility] Name Value Range Interpretation Code Description Data Marlene rce(s) Supporting Document(s) URR 56.45 [facility] ID Date Data Source [id number] 09/26/2019 01:52:00 PM EDT [facility] Name Value Range Interpretation Code Description Data Marlene rce(s) Supporting Document(s) BUNPOST 27 mg/dL 7-23 [facility] ID Date Data Source [id number] 09/26/2019 01:52:00 PM EDT [facility] Name Value Range Interpretation Code Description Data Marlene rce(s) Supporting Document(s) GLU 118 mg/dL 70-110 [facility] Patients taking Sulfasalazine may have f alsely depressedGlucose levels. Patients taking Sulfapyridine may havefalsely elevated Glucose levels. Patients should be drawnfor Glucose before the initial administration of eitherdrug. BUNPRE 62 mg/dL 7-23 [facility] CRE 5.530 mg/dL 0.500-1.300 [facility] HISTORY OF A HIGH CREATININE AND IS A DI ALYSIS PATIENT. CHLORIDE 105 mmol/L 99-110 [facility] NA 142 mmol/L 136-147 [facility] POTASSIUM 4.1 mmol/L 3.5-5.1 [facility] TCO2 25 mmol/L 20-33 [facility] ANION GAP 16.1 10.0-20.0 [facility] CA 8.2 mg/dL 8.3-10.7 [facility] NATHALIE 5.2 mg/dL 2.5-4.5 [facility] ALKALINE PHOS 84 U/L 45-117 [facility] ALB 3.2 g/dL 3.5-5.0 [facility] ESRD Dialysis patient Albumin reference range: 2.9-4.4 g/dL ALTI 15 U/L 6-54 [facility] Patients taking Sulfasalazine and/or Sul fapyridine may havefalsely depressed ALT levels. Patients should be drawn forALT before the initial administration of either drug. AST 16 U/L 8-40 [facility] Patients taking Sulfasalazine and/or Sul fapyridine may havefalsely depressed AST levels. Patients should be drawn forAST before the initial administration of either drug. ID Date Data Source [id number] 09/26/2019 12:23:00 PM EDT [facility] Name Value Range Interpretation Code Description Data Marlene rce(s) Supporting Document(s) WBC 4.04 x10E3/uL 4.0-10.5 [facility] RBC 3.55 x10E6/uL 4.70-6.00 [facility] Hemoglobin 10.6 g/dL 14.0-18.0 [facility] Hematocrit 32.4 % 42.0-52.0 [facility] MCV 91.3 fL 81.0-99.0 [facility] MCH 29.9 pg 27.0-31.0 [facility] MCHC 32.7 g/dL 32.7-35.6 [facility] RDW 16.5 % 11.5-14.0 [facility] Platelet count 153 x10E3/uL 150-450 [facility] MPV 9.5 fl 6.9-9.5 [facility] Neutrophils 56.5 % 34-64 [facility] Lymphocytes 24.8 % 25-45 [facility] Monocytes 14.1 % 1.7-10.6 [facility] Eosinophils 3.7 % 0.4-7.0 N [facility] Basophils 0.7 % 0.1-2.0 N [facility] Imm. Gran. 0.2 % 0.1-2.0 N [facility] Abs. Neutro. 2.3 x10E3/uL 1.2-7.6 [facility] Abs. Lymph. 1.0 x10E3/uL 1.0-3.5 [facility] Abs. [place]. 0.6 x10E3/uL 0.1-1.0 [facility] Abs. Eosin. 0.2 x10E3/uL 0.1-0.7 [facility] Baso. 0.0 x10E3/uL 0.0-0.1 N [facility] Abs. Imm. Gran. 0.0 x10E3/uL 0.0-0.1 [facility] pital ANRBC% 0 % 0 [facility] ID Date Data Source [id number] 08/25/2019 01:39:00 PM EDT [facility] Name Value Range Interpretation Code Description Data Marlene rce(s) Supporting Document(s) URR 56.00 [facility] ID Date Data Source [id number] 08/25/2019 01:39:00 PM EDT [facility] Name Value Range Interpretation Code Description Data Marlene rce(s) Supporting Document(s) CHOL 121 mg/dL 100-200 [facility] TRIG 245 mg/dL 30-190 [facility] HDL 22 mg/dL 35-65 [facility] LDL DIRECT 60 mg/dL 0-100 [facility] VLDL 39 mg/dL 0-100 [facility] ID Date Data Source [id number] 08/25/2019 01:39:00 PM EDT [facility] amy Name Value Range Interpretation Code Description Data Marlene rce(s) Supporting Document(s) BUNPOST 33 mg/dL 7-23 [facility] ID Date Data Source [id number] 08/25/2019 01:39:00 PM EDT [facility] Name Value Range Interpretation Code Description Data Marlene rce(s) Supporting Document(s) GLU 164 mg/dL 70-110 [facility] Patients taking Sulfasalazine may have f alsely depressedGlucose levels. Patients taking Sulfapyridine may havefalsely elevated Glucose levels. Patients should be drawnfor Glucose before the initial administration of eitherdrug. BUNPRE 75 mg/dL 7-23 [facility] CRE 5.320 mg/dL 0.500-1.300 [facility] CHLORIDE 105 mmol/L 99-110 [facility] NA 139 mmol/L 136-147 [facility] POTASSIUM 4.5 mmol/L 3.5-5.1 [facility] TCO2 24 mmol/L 20-33 [facility] ANION GAP 14.5 10.0-20.0 [facility] CA 8.0 mg/dL 8.3-10.7 [facility] NATHALIE 4.8 mg/dL 2.5-4.5 [facility] ALKALINE PHOS 98 U/L 45-117 [facility] ALB 3.5 g/dL 3.5-5.0 [facility] ESRD Dialysis patient Albumin reference range: 2.9-4.4 g/dL ALTI 14 U/L 6-54 [facility] Patients taking Sulfasalazine and/or Sul fapyridine may havefalsely depressed ALT levels. Patients should be drawn forALT before the initial administration of either drug. AST 13 U/L 8-40 [facility] Patients taking Sulfasalazine and/or Sul fapyridine may havefalsely depressed AST levels. Patients should be drawn forAST before the initial administration of either drug. ID Date Data Source [id number] 08/25/2019 01:01:00 PM EDT [facility] amy Name Value Range Interpretation Code Description Data Marlene rce(s) Supporting Document(s) HgBA1C 7.60 % 4.2-6.3 [facility] ID Date Data Source [id number] 08/25/2019 12:03:00 PM EDT [facility] Name Value Range Interpretation Code Description Data Marlene rce(s) Supporting Document(s) WBC 4.41 x10E3/uL 4.0-10.5 [facility] RBC 3.51 x10E6/uL 4.70-6.00 L [facility] Hemoglobin 10.4 g/dL 14.0-18.0 [facility] Hematocrit 31.7 % 42.0-52.0 L [facility] MCV 90.3 fL 81.0-99.0 [facility] MCH 29.6 pg 27.0-31.0 [facility] MCHC 32.8 g/dL 32.7-35.6 [facility] RDW 16.4 % 11.5-14.0 [facility] Platelet count 134 x10E3/uL 150-450 L [facility] ital MPV 9.4 fl 6.9-9.5 N [facility] Neutrophils 59.1 % 34-64 N [facility] Lymphocytes 24.3 % 25-45 L [facility] Monocytes 11.6 % 1.7-10.6 H [facility] Eosinophils 4.1 % 0.4-7.0 N [facility] Basophils 0.7 % 0.1-2.0 N [facility] Imm. Gran. 0.2 % 0.1-2.0 N [facility] Abs. Neutro. 2.6 x10E3/uL 1.2-7.6 [facility] Abs. Lymph. 1.1 x10E3/uL 1.0-3.5 [facility] Abs. [place]. 0.5 x10E3/uL 0.1-1.0 N [facility] Abs. Eosin. 0.2 x10E3/uL 0.1-0.7 [facility] Abs. Baso. 0.0 x10E3/uL 0.0-0.1 N [facility] Abs. Imm. Gran. 0.0 x10E3/uL 0.0-0.1 [facility] pital ANRBC% 0 % 0 N [facility] ID Date Data Source [id number] 08/01/2019 12:15:00 PM EDT [facility] Name Value Range Interpretation Code Description Data Marlene rce(s) Supporting Document(s) PTH 427.0 pg/mL 18.4-80.1 [facility] ID Date Data Source [id number] 08/01/2019 11:31:00 AM EDT [facility] Name Value Range Interpretation Code Description Data Marlene rce(s) Supporting Document(s) MAKENZIE 104.5 ng/mL 26.0-388.0 [facility] ID Date Data Source [id number] 08/01/2019 11:26:00 AM EDT [facility] Name Value Range Interpretation Code Description Data Marlene rce(s) Supporting Document(s) FE 64 ug/dL 42-175 [facility] Patients treated with metal-binding drug s(i.e. Deferoxamine) may have depressed iron values aschelated iron may not properly react in the iron assay. UNBOUND IRON BC 154 ug/dL 130-375 [facility] TOTAL IRON BC 218.0 ug/dL 250-400 [facility] % IRON SAT. 29.3 % 30-35 L [facility] ID Date Data Source [id number] 08/01/2019 11:26:00 AM EDT [facility] Name Value Range Interpretation Code Description Data Marlene rce(s) Supporting Document(s) URR 54.39 [facility] ID Date Data Source [id number] 08/01/2019 11:26:00 AM EDT [facility] Name Value Range Interpretation Code Description Data Marlene rce(s) Supporting Document(s) BUNPOST 26 mg/dL 7-23 [facility] ID Date Data Source [id number] 08/01/2019 11:26:00 AM EDT [facility] Name Value Range Interpretation Code Description Data Marlene rce(s) Supporting Document(s) GLU 186 mg/dL 70-110 [facility] Patients taking Sulfasalazine may have f alsely depressedGlucose levels. Patients taking Sulfapyridine may havefalsely elevated Glucose levels. Patients should be drawnfor Glucose before the initial administration of eitherdrug. BUNPRE 57 mg/dL 7-23 [facility] CRE 6.280 mg/dL 0.500-1.300 PH [facility] CHLORIDE 105 mmol/L 99-110 [facility] NA 139 mmol/L 136-147 [facility] POTASSIUM 5.1 mmol/L 3.5-5.1 [facility] TCO2 26 mmol/L 20-33 [facility] ANION GAP 13.1 10.0-20.0 [facility] CA 8.1 mg/dL 8.3-10.7 [facility] NATHALIE 4.5 mg/dL 2.5-4.5 [facility] ALKALINE PHOS 84 U/L 45-117 [facility] ALB 3.4 g/dL 3.5-5.0 [facility] ESRD Dialysis patient Albumin reference range: 2.9-4.4 g/dL ALTI 14 U/L 6-54 [facility] Patients taking Sulfasalazine and/or Sul fapyridine may havefalsely depressed ALT levels. Patients should be drawn forALT before the initial administration of either drug. AST 15 U/L 8-40 [facility] Patients taking Sulfasalazine and/or Sul fapyridine may havefalsely depressed AST levels. Patients should be drawn forAST before the initial administration of either drug. ID Date Data Source [id number] 08/01/2019 10:59:00 AM EDT [facility] Name Value Range Interpretation Code Description Data Marlene rce(s) Supporting Document(s) WBC 3.43 x10E3/uL 4.0-10.5 [facility] RBC 3.75 x10E6/uL 4.70-6.00 [facility] Hemoglobin 11.0 g/dL 14.0-18.0 [facility] Hematocrit 34.0 % 42.0-52.0 [facility] MCV 90.7 fL 81.0-99.0 [facility] MCH 29.3 pg 27.0-31.0 [facility] MCHC 32.4 g/dL 32.7-35.6 [facility] RDW 16.3 % 11.5-14.0 [facility] Platelet count 144 x10E3/uL 150-450 L [facility] ital MPV 9.1 fl 6.9-9.5 N [facility] Neutrophils 57.7 % 34-64 [facility] Lymphocytes 25.7 % 25-45 [facility] Monocytes 12.8 % 1.7-10.6 H [facility] Eosinophils 2.3 % 0.4-7.0 N [facility] Basophils 1.2 % 0.1-2.0 [facility] Imm. Gran. 0.3 % 0.1-2.0 [facility] Abs. Neutro. 2.0 x10E3/uL 1.2-7.6 [facility] Lymph. 0.9 x10E3/uL 1.0-3.5 L [facility] l Abs. [place]. 0.4 x10E3/uL 0.1-1.0 [facility] Abs. Eosin. 0.1 x10E3/uL 0.1-0.7 N [facility] l Abs. Baso. 0.0 x10E3/uL 0.0-0.1 [facility] Abs. Imm. Gran. 0.0 x10E3/uL 0.0-0.1 [facility] pital ANRBC% 0 % 0 [facility] ID Date Data Source [id number] 07/04/2019 12:03:00 PM EDT [facility] Does the pt. have a limb restriction? YL /R-> LeftRestricted limb verified Y Name Value Range Interpretation Code Description Data Marlene rce(s) Supporting Document(s) GLU 56 mg/dL 70-110 [facility] Patients taking Sulfasalazine may have f alsely depressedGlucose levels. Patients taking Sulfapyridine may havefalsely elevated Glucose levels. Patients should be drawnfor Glucose before the initial administration of eitherdrug. BUNPRE 60 mg/dL 7-23 [facility] CRE 5.010 mg/dL 0.500-1.300 PH [facility] CHLORIDE 108 mmol/L 99-110 N [facility] NA 142 mmol/L 136-147 [facility] POTASSIUM 4.8 mmol/L 3.5-5.1 [facility] TCO2 24 mmol/L 20-33 [facility] ANION GAP 14.8 10.0-20.0 [facility] CA 8.2 mg/dL 8.3-10.7 [facility] NATHALIE 4.4 mg/dL 2.5-4.5 [facility] ALKALINE PHOS 80 U/L 45-117 [facility] ALB 3.4 g/dL 3.5-5.0 [facility] ESRD Dialysis patient Albumin reference range: 2.9-4.4 g/dL ALTI 14 U/L 6-54 [facility] Patients taking Sulfasalazine and/or Sul fapyridine may havefalsely depressed ALT levels. Patients should be drawn forALT before the initial administration of either drug. AST 12 U/L 8-40 [facility] Patients taking Sulfasalazine and/or Sul fapyridine may havefalsely depressed AST levels. Patients should be drawn forAST before the initial administration of either drug. ID Date Data Source [id number] 07/04/2019 12:03:00 PM EDT [facility] amy Does the pt. have a limb restriction? YL /R-> LeftRestricted limb verified Y Name Value Range Interpretation Code Description Data Marlene rce(s) Supporting Document(s) URR 55.00 [facility] ID Date Data Source [id number] 07/04/2019 12:03:00 PM EDT [facility] Does the pt. have a limb restriction? YL /R-> LeftRestricted limb verified Y Name Value Range Interpretation Code Description Data Marlene rce(s) Supporting Document(s) BUNPOST 27 mg/dL 7-23 [facility] ID Date Data Source [id number] 07/04/2019 11:37:00 AM EDT [facility] Does the pt. have a limb restriction? YL /R-> LeftRestricted limb verified Y Name Value Range Interpretation Code Description Data Marlene rce(s) Supporting Document(s) WBC 4.14 x10E3/uL 4.0-10.5 [facility] RBC 3.54 x10E6/uL 4.70-6.00 [facility] Hemoglobin 10.5 g/dL 14.0-18.0 [facility] Hematocrit 32.5 % 42.0-52.0 L [facility] MCV 91.8 fL 81.0-99.0 N [facility] MCH 29.7 pg 27.0-31.0 N [facility] MCHC 32.3 g/dL 32.7-35.6 [facility] RDW 16.6 % 11.5-14.0 H [facility] Platelet count 158 x10E3/uL 150-450 N [facility] ital MPV 9.5 fl 6.9-9.5 N [facility] Neutrophils 61.2 % 34-64 N [facility] Lymphocytes 24.4 % 25-45 [facility] Monocytes 9.9 % 1.7-10.6 N [facility] Eosinophils 4.1 % 0.4-7.0 N [facility] Basophils 0.2 % 0.1-2.0 [facility] Imm. Gran. 0.2 % 0.1-2.0 N [facility] Abs. Neutro. 2.5 x10E3/uL 1.2-7.6 [facility] Abs. Lymph. 1.0 x10E3/uL 1.0-3.5 [facility] Abs. [place]. 0.4 x10E3/uL 0.1-1.0 N [facility] Abs. Eosin. 0.2 x10E3/uL 0.1-0.7 [facility] Baso. 0.0 x10E3/uL 0.0-0.1 [facility] Abs. Imm. Gran. 0.0 x10E3/uL 0.0-0.1 [facility] pital ANRBC% 0 % 0 [facility] ID Date Data Source [id number] 06/06/2019 10:55:00 AM EST [facility] COMMENTS TO LAB: AT DIALYSIS Name Value Range Interpretation Code Description Data Marlene rce(s) Supporting Document(s) WBC 3.90 x10E3/uL 4.0-10.5 [facility] RBC 3.50 x10E6/uL 4.70-6.00 [facility] Hemoglobin 10.4 g/dL 14.0-18.0 L [facility] Hematocrit 31.9 % 42.0-52.0 L [facility] MCV 91.1 fL 81.0-99.0 [facility] MCH 29.7 pg 27.0-31.0 N [facility] MCHC 32.6 g/dL 32.7-35.6 [facility] RDW 16.7 % 11.5-14.0 H [facility] Platelet count 145 x10E3/uL 150-450 [facility] ital MPV 9.2 fl 6.9-9.5 N [facility] Neutrophils 63.1 % 34-64 N [facility] Lymphocytes 20.5 % 25-45 L [facility] Monocytes 11.5 % 1.7-10.6 H [facility] Eosinophils 3.6 % 0.4-7.0 N [facility] Basophils 0.8 % 0.1-2.0 N [facility] Imm. Gran. 0.5 % 0.1-2.0 N [facility] Abs. Neutro. 2.5 x10E3/uL 1.2-7.6 [facility] Abs. Lymph. 0.8 x10E3/uL 1.0-3.5 [facility] Abs. [place]. 0.5 x10E3/uL 0.1-1.0 N [facility] Abs. Eosin. 0.1 x10E3/uL 0.1-0.7 [facility] Abs. Baso. 0.0 x10E3/uL 0.0-0.1 N [facility] Abs. Imm. Gran. 0.0 x10E3/uL 0.0-0.1 [facility] pital ANRBC% 0 % 0-5 N [facility] ID Date Data Source [id number] 06/06/2019 12:16:00 PM EST [facility] COMMENTS TO LAB: AT DIALYSIS Name Value Range Interpretation Code Description Data Marlene rce(s) Supporting Document(s) URR 54.76 N [facility] ID Date Data Source [id number] 06/06/2019 12:16:00 PM EST [facility] COMMENTS TO LAB: AT DIALYSIS Name Value Range Interpretation Code Description Data Marlene rce(s) Supporting Document(s) BUNPOST 38 mg/dL 7-23 [facility] ID Date Data Source [id number] 06/06/2019 12:16:00 PM EST [facility] COMMENTS TO LAB: AT DIALYSIS Name Value Range Interpretation Code Description Data Marlene [facility](s) Supporting Document(s) GLU 211 mg/dL 70-110 [facility] Patients taking Sulfasalazine may have f alsely depressedGlucose levels. Patients taking Sulfapyridine may havefalsely elevated Glucose levels. Patients should be drawnfor Glucose before the initial administration of eitherdrug. BUNPRE 84 mg/dL 7-23 [facility] HISTORY OF A HIGH CREATININE AND IS A DI ALYSIS PATIENT. CRE 5.960 mg/dL 0.500-1.300 PH [facility] HISTORY OF A HIGH CREATININE AND IS A DI ALYSIS PATIENT. CHLORIDE 105 mmol/L 99-110 [facility] NA 137 mmol/L 136-147 [facility] POTASSIUM 4.4 mmol/L 3.5-5.1 [facility] TCO2 23 mmol/L 20-33 [facility] ANION GAP 13.4 10.0-20.0 [facility] CA 8.7 mg/dL 8.3-10.7 [facility] NATHALIE 4.9 mg/dL 2.5-4.5 [facility] ALKALINE PHOS 106 U/L 45-117 [facility] ALB 3.0 g/dL 3.5-5.0 L [facility] ESRD Dialysis patient Albumin reference range: 2.9-4.4 g/dL ALTI 14 U/L 6-54 [facility] Patients taking Sulfasalazine and/or Sul fapyridine may havefalsely depressed ALT levels. Patients should be drawn forALT before the initial administration of either drug. AST 11 U/L 8-40 [facility] Patients taking Sulfasalazine and/or Sul fapyridine may havefalsely depressed AST levels. Patients should be drawn forAST before the initial administration of either drug. ID Date Data Source [id number] 05/10/2019 11:07:00 AM EST [place] [facility] Performed at: RN [address] [id number] Director: Mary Beth Macario MD, Phone: [phone] at: [address] [id number] Director: Mary Beth Macario MD, Phone: [phone] Name Value Range Interpretation Code Description Data Marlene rce(s) Supporting Document(s) HBsAB <3.1 mIU/mL Immunity>9.9 [facility] Status of Immunity Anti-HBs Level Inconsistent with Immunity 0.0 - 9.9Consistent with Immunity >9.9 ID Date Data Source [id number] 05/10/2019 11:07:00 AM EST [facility] Performed at: [address] [id number] Director: Mary Beth Macario MD, Phone: [phone] at: [address] [id number] Director: Mary Beth Macario MD, Phone: [phone] Name Value Range Interpretation Code Description Data Marlene rce(s) Supporting Document(s) HEP B CORE AB Negative Negative [facility] ID Date Data Source [id number] 05/09/2019 07:50:00 PM EST [facility] Name Value Range Interpretation Code Description Data Marlene rce(s) Supporting Document(s) FE 48 ug/dL 42-175 [facility] Patients treated with metal-binding drug s(i.e. Deferoxamine) may have depressed iron values aschelated iron may not properly react in the iron assay. UNBOUND IRON BC 157 ug/dL 130-375 [facility] TOTAL IRON BC 205.0 ug/dL 250-400 [facility] % IRON SAT. 23.4 % 30-35 L [facility] ID Date Data Source [id number] 05/09/2019 07:50:00 PM EST [facility] Name Value Range Interpretation Code Description Data Marlene rce(s) Supporting Document(s) URR 57.63 [facility] ID Date Data Source [id number] 05/09/2019 07:50:00 PM EST [facility] Name Value Range Interpretation Code Description Data Marlene rce(s) Supporting Document(s) BUNPOST 25 mg/dL 7-23 [facility] ID Date Data Source [id number] 05/09/2019 07:50:00 PM EST [facility] Name Value Range Interpretation Code Description Data Marlene rce(s) Supporting Document(s) CHOL 114 mg/dL 100-200 [facility] TRIG 160 mg/dL 30-190 [facility] HDL 28 mg/dL 35-65 [facility] LDL DIRECT 57 mg/dL 0-100 [facility] VLDL 29 mg/dL 0-100 [facility] ID Date Data Source [id number] 05/09/2019 07:50:00 PM EST [facility] Name Value Range Interpretation Code Description Data Marlene rce(s) Supporting Document(s) GLU 102 mg/dL 70-110 [facility] Patients taking Sulfasalazine may have f alsely depressedGlucose levels. Patients taking Sulfapyridine may havefalsely elevated Glucose levels. Patients should be drawnfor Glucose before the initial administration of eitherdrug. BUNPRE 59 mg/dL 7-23 [facility] CRE 6.130 mg/dL 0.500-1.300 PH [facility] CHLORIDE 102 mmol/L 99-110 [facility] NA 138 mmol/L 136-147 [facility] POTASSIUM 4.5 mmol/L 3.5-5.1 [facility] TCO2 23 mmol/L 20-33 [facility] ANION GAP 17.5 10.0-20.0 [facility] CA 8.1 mg/dL 8.3-10.7 [facility] NATHALIE 4.3 mg/dL 2.5-4.5 [facility] ALKALINE PHOS 79 U/L 45-117 [facility] ALB 3.4 g/dL 3.5-5.0 [facility] ESRD Dialysis patient Albumin reference range: 2.9-4.4 g/dL ALTI 11 U/L 6-54 [facility] Patients taking Sulfasalazine and/or Sul fapyridine may havefalsely depressed ALT levels. Patients should be drawn forALT before the initial administration of either drug. AST 17 U/L 8-40 [facility] Patients taking Sulfasalazine and/or Sul fapyridine may havefalsely depressed AST levels. Patients should be drawn forAST before the initial administration of either drug. ID Date Data Source [id number] 05/09/2019 01:45:00 PM EST [facility] Name Value Range Interpretation Code Description Data Marlene rce(s) Supporting Document(s) HEP C Non reactive Nonreactive [facility] ID Date Data Source [id number] 05/09/2019 01:45:00 PM EST [facility] Name Value Range Interpretation Code Description Data Marlene rce(s) Supporting Document(s) PTH 456.3 pg/mL 18.4-80.1 H [facility] ID Date Data Source [id number] 05/09/2019 01:45:00 PM EST [facility] Name Value Range Interpretation Code Description Data Marlene rce(s) Supporting Document(s) HBsAG NEGATIVE NEGATIVE [facility] ID Date Data Source [id number] 05/09/2019 01:02:00 PM EST [facility] Name Value Range Interpretation Code Description Data Marlene rce(s) Supporting Document(s) HgBA1C 7.80 % 4.2-6.3 [facility] ID Date Data Source [id number] 05/09/2019 12:53:00 PM EST [facility] Name Value Range Interpretation Code Description Data Marlene rce(s) Supporting Document(s) MAKENZIE 154.8 ng/mL 26.0-388.0 [facility] ID Date Data Source [id number] 05/09/2019 12:21:00 PM EST [facility] Name Value Range Interpretation Code Description Data Marlene rce(s) Supporting Document(s) WBC 3.87 x10E3/uL 4.0-10.5 [facility] RBC 3.86 x10E6/uL 4.70-6.00 [facility] Hemoglobin 11.3 g/dL 14.0-18.0 [facility] Hematocrit 35.9 % 42.0-52.0 L [facility] MCV 93.0 fL 81.0-99.0 N [facility] MCH 29.3 pg 27.0-31.0 N [facility] MCHC 31.5 g/dL 32.7-35.6 L [facility] RDW 17.2 % 11.5-14.0 [facility] Platelet count 153 x10E3/uL 150-450 [facility] MPV 9.5 fl 6.9-9.5 N [facility] Neutrophils 63.7 % 34-64 [facility] Lymphocytes 20.7 % 25-45 L [facility] Monocytes 12.7 % 1.7-10.6 [facility] Eosinophils 1.8 % 0.4-7.0 [facility] Basophils 0.8 % 0.1-2.0 [facility] Imm. Gran. 0.3 % 0.1-2.0 [facility] Abs. Neutro. 2.5 x10E3/uL 1.2-7.6 [facility] Abs. Lymph. 0.8 x10E3/uL 1.0-3.5 [facility] Abs. [place]. 0.5 x10E3/uL 0.1-1.0 N [facility] Abs. Eosin. 0.1 x10E3/uL 0.1-0.7 [facility] Abs. Baso. 0.0 x10E3/uL 0.0-0.1 N [facility] Abs. Imm. Gran. 0.0 x10E3/uL 0.0-0.1 [facility] Procedure Vital Signs ID Date Data Source UNK Name Value Range Interpretation Code Description Data Source(s) Body surface area Derived from formula 2.31 m2 2.31 m2 [facility] ([facility]) Body weight 112.606 kg 112.606 kg [facility] ([facility]) [place] body weight 172 [lb_av] 172 [lb_av] [facility] ([facility]) Body mass index (BMI) [Ratio] 34.6 kg/m2 34.6 k g/m2 [facility] ([facility]) Body weight 248.25 [lb_av] 248.25 [lb_av] [facility] ([facility]) Body height 71 [in_i] 71 [in_i] [facility] ([facility]) 5'11" Diastolic blood pressure 78 mm[Hg] 78 mm[Hg] [facility] ([facility]) Systolic blood pressure 130 mm[Hg] 130 mm[Hg] [facility] ([facility]) Body surface area Derived from formula 2.33 m2 2.33 m2 [facility] ([facility]) Body weight 114.364 kg 114.364 kg [facility] ([facility]) [place] body weight 172 [lb_av] 172 [lb_av] [facility] ([facility]) Body mass index (BMI) [Ratio] 35.2 kg/m2 35.2 k g/m2 [facility] ([facility]) Body weight 252.12 [lb_av] 252.12 [lb_av] [facility] ([facility]) Body height 71 [in_i] 71 [in_i] [facility] ([facility]) 5'11" Diastolic blood pressure 66 mm[Hg] 66 mm[Hg] [facility] ([facility]) Systolic blood pressure 128 mm[Hg] 128 mm[Hg] [facility] ([facility]) Body mass index (BMI) [Ratio] 34.86 kg/m2 34.86 kg/m2 eCW1 ([facility]) Body height [in_i] eCW1 ([facility]) Body weight 250 [lb_av] 250 [lb_av] eCW1 ([facility]) Body surface area Derived from formula 2.31 m2 2.31 m2 [place] ([facility]) Body mass index (BMI) [Ratio] 34.7 kg/m2 34.7 k g/m2 [place] ([facility]) Body weight 249 [lb_av] 249 [lb_av] [place] ([facility]) Body height 71 [in_i] 71 [in_i] [place] ([facility]) Respiratory rate 24 /min 24 /min [place] ([facility]) Heart rate 62 /min 62 /min [place] ([facility]) Diastolic blood pressure 64 mm[Hg] 64 mm[Hg] [place] ([facility]) Systolic blood pressure 118 mm[Hg] 118 mm[Hg] [facility] Body mass index (BMI) [Ratio] 34.7 kg/m2 34.7 k g/m2 [place] ([facility]) Body weight 249 [lb_av] 249 [lb_av] [place] ([facility]) Body height 71 [in_i] 71 [in_i] [place] ([facility]) Respiratory rate 24 /min 24 /min [place] ([facility]) Heart rate 62 /min 62 /min [place] ([facility]) Diastolic blood pressure 64 mm[Hg] 64 mm[Hg] [place] ([facility]) Systolic blood pressure 118 mm[Hg] 118 mm[Hg] G [facility] ([facility]) Body surface area Derived from formula 2.31 m2 2.31 m2 [place] ([facility]) Body surface area Derived from formula 2.32 m2 2.32 m2 [facility] ) Body weight 113.627 kg 113.627 kg [facility] ([facility] ) [place] body weight 172 [lb_av] 172 [lb_av] [facility] ([facility], ) Body mass index (BMI) [Ratio] 34.9 kg/m2 34.9 k g/m2 [facility], ) Body weight 250.50 [lb_av] 250.50 [lb_av] [facility] ([facility], ) Body height 71 [in_i] 71 [in_i] [facility] ([facility], ) 5'11" Diastolic blood pressure 79 mm[Hg] 79 mm[Hg] [facility] ([facility], ) Systolic blood pressure 173 mm[Hg] 173 mm[Hg] M [facility] ([facility], ) Diastolic blood pressure 66 mm[Hg] 66 mm[Hg] eCW1 ([facility]) Systolic blood pressure 134 mm[Hg] 134 mm[Hg] e CW1 ([facility]) Body temperature 97.8 [degF] 97.8 [degF] eCW1 ( [facility]) Respiratory rate 18 /min 18 /min eCW1 ([facility]) Heart rate 62 /min 62 /min eCW1 ([facility]) Body mass index (BMI) [Ratio] 34.33 kg/m2 34.33 kg/m2 eCW1 ([facility]) Body height [in_us] eCW1 ([facility]) Body weight Measured 246.2 [lb_av] 246.2 [lb_av ] eCW1 ([facility]) Diastolic blood pressure 70 mm[Hg] 70 mm[Hg] eCW1 ([facility]) Systolic blood pressure 140 mm[Hg] 140 mm[Hg] e CW1 ([facility]) Body temperature 98.2 [degF] 98.2 [degF] eCW1 ( [facility]) Respiratory rate 20 /min 20 /min eCW1 ([facility]) Heart rate 78 /min 78 /min eCW1 ([facility]) Body mass index (BMI) [Ratio] 34.31 kg/m2 34.31 kg/m2 eCW1 ([facility]) Body height [in_us] eCW1 ([facility]) Body weight Measured 246 [lb_av] 246 [lb_av] eC W1 ([facility]) ID Date Data Source [id number] 09/20/2019 09:40:48 AM EDT [facility] Name Value Range Interpretation Code Description Data Source(s) WEIGHT RECORDED 245.15 lb 245.15 lb [facility] Body height Measured 71 in 71 in [facility] Patient Treatment Plan of Care Planned Activity Planned Date Details Description Data Source (s) Fluorouracil 50 MG/ML Topical Cream 01/26/2020 12:00:00 AM EDT eCW1 ([facility]) Fluorouracil 50 MG/ML Topical Cream 01/26/2020 12:00:00 AM EDT eCW1 ([facility]) Sertraline 50 MG Oral Tablet 11/07/2019 12:00:00 AM [facility] ([facility]) Insulin Lispro 25 UNT/ML / Insulin, Prot amine Lispro, Human 75 UNT/ML Injectable Suspension [Humalog Mix] 10/31/2019 12:00:00 AM [facility]) NovoFine 30G X 8 MM Miscellaneous 10/31/2019 12:00:00 AM [facility]) Simvastatin 40 MG Oral Tablet 10/20/2019 12:00:00 AM [facility]) Sertraline 50 MG Oral Tablet 08/08/2019 12:00:00 AM [facility]) Omeprazole 40 MG Delayed Release Oral Capsule 06/23/2019 12:00:00 A M [facility]) carvedilol 6.25 MG Oral Tablet 06/06/2019 12:00:00 AM [facility]) Doxycycline Monohydrate 100 MG Oral Capsule 05/19/2019 12:00:00 AM [facility] eCW1 ([facility]) NovoFine 30G X 8 MM Miscellaneous 05/17/2019 12:00:00 AM [facility]) Insulin Lispro 25 UNT/ML / Insulin, Prot amine Lispro, Human 75 UNT/ML Injectable Suspension [Humalog Mix] 05/05/2019 12:00:00 AM [facility]) Insulin Lispro 25 UNT/ML / Insulin, Prot amine Lispro, Human 75 UNT/ML Injectable Suspension [Humalog Mix] 01/10/2019 12:00:00 AM [facility]) Zithromax Z-Dennis 250MG Oral Tablet 09/02/2018 12:00:00 AM [facility]) Potassium Chloride 20 MEQ Extended Release Oral Tablet 08/03/2018 12:00:00 AM [facility] ([facility]) Sertraline 50 MG Oral Tablet 08/03/2018 12:00:00 AM [facility]) carvedilol 6.25 MG Oral Tablet 12/08/2017 12:00:00 AM [facility]) NovoFine 30G X 8 MM MISC 11/24/2013 12:00:00 AM [facility] ([facility])
[2020-06-08] MEDS ORDERED: LIDOCAINE 2% 100MG/5ML SDV (FOR ANES.) As Ordered ONE (07:19)
[2020-06-08] MEDS ORDERED: fentaNYL 100 MCG/2 ML INJECTION (J3010) As Ordered ONE ×2 (07:19→09:44)
[2020-06-08] MEDS ORDERED: MIDAZOLAM INJ 2MG/2ML VIAL (J2250 PER 1MG) As Ordered ONE (07:19)
[2020-06-08] MEDS ORDERED: propofoL 200 MG/20 ML VIAL As Ordered ONE (07:19)
[2020-06-08] MEDS ORDERED: ROCURONIUM BROMIDE 50 MG/5 ML VIAL As Ordered ONE ×2 (07:19→09:17)
[2020-06-08] MEDS ORDERED: ONDANSETRON 4MG/2ML VIAL As Ordered ONE (09:45)
[2020-06-08] MEDS ORDERED: SUGAMMADEX SODIUM 500 MG/5 ML VIAL (BRIDION) As Ordered ONE (09:45)
[2020-06-08] MEDS ORDERED: NS 1,000 ML IV SCH (10:31)
[2020-06-08] MEDS ORDERED: ONDANSETRON 4MG/2ML VIAL IV PRN ×2 (10:35→10:55)
[2020-06-08] MEDS ORDERED: MORPHINE 2 MG/ML 1ML VIAL (J2270) IV PRN (10:35)
[2020-06-08] MEDS ORDERED: NORCO, ANEXSIA 5/325MG TABLET (HYDROcodone/ACETAMINOPHEN) PO PRN (10:35)
[2020-06-08] MEDS ORDERED: ACETAMINOPHEN TAB 650MG DOSE (2X325MG) PO PRN (10:35)
[2020-06-08] MEDS ORDERED: LR 1,000 ML IV SCH (10:55)
[2020-06-08] MEDS ORDERED: PERCOCET 5MG/325MG TAB PO PRN (10:55)
[2020-06-08] MEDS ORDERED: fentaNYL 100 MCG/2 ML INJECTION (J3010) IV PRN (10:55)
[2020-06-08] MEDS: HumaLOG INSULIN (NovoLOG) PER UNIT SC SCH ×2 (11:27→19:10)
[2020-06-08 14:00] VITALS: BP 154/74
[2020-06-08 18:00] VITALS: BP 142/71
--- NOTE | 2020-06-08 18:08 | RO ---
OPERATIVE NOTE DATE OF OPERATION: 06/08/2020 PREOPERATIVE DIAGNOSIS: Colostomy prolapse. POSTOPERATIVE DIAGNOSIS: Colostomy prolapse. PROCEDURE: Partial colectomy (transverse colon) with recreation of colostomy. SURGEON: Juan Francisco Rob MD ANESTHESIA: General INDICATIONS FOR THE PROCEDURE: The patient is a 64-year-old man who had undergone a low anterior resection back in 2011. 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 He has had problems over the last year at least with significant prolapse of his colostomy. He is now for surgery to correct his prolapse. DESCRIPTION OF PROCEDURE: The patient was brought to the operating room and placed on the table in a supine position. He was placed under general endotracheal anesthesia. The patient's abdomen was prepped and draped in a sterile fashion after removing his stoma appliance. His ostomy had spontaneously reduced. Examination of the stoma which was in the left upper quadrant identified some nodularity just on the mucosal side of the mucocutaneous junction particularly on the lateral inferior aspects of the stoma. The stoma was grasped with several Allis clamps and it was possible to fransisco at least 10 cm of the stoma. He has been noted to have a 12-15 cm prolapse of the stoma. The mucocutaneous junction was incised with a scalpel and the dissection continued primarily with the needle-tip cautery to free the colon from the subcutaneous fatty tissues and the skin edges. As dissection proceeded, the colon was freed down to and from the abdominal wall muscles and fascia. With gentle traction on the colon, it was possible to deliver approximately 15 cm of colon through the stoma site. A tentative point for transection of the colon was identified. The colon had excellent blood supply. The mesentery was divided out toward the distal end of the colon close to the colon in several bites to ensure that the blood supply to the colon more proximally was preserved. After the mesentery was adequately divided, the colon was transected at the appropriate location with the cautery. Approximately 15 cm of colon with his old stoma site was therefore resected. This was sent for permanent pathology. Hemostasis was ensured with cautery. The mesentery was reduced nearly completely through the muscle layer into the abdomen. Several sutures of 3-0 Vicryl were placed through the edges of the fascia to the colon and mesentery to prevent retraction. The end of the colon was then everted with four corner everting sutures of 3-0 Vicryl. Multiple simple sutures of 3-0 Vicryl were then taken between the end of the bowel and the skin edges. The colon appeared well perfused and pink. A new ostomy appliance was then applied. The patient tolerated the procedure well without apparent complication. He was awakened in the operating room, extubated and moved to the recovery room in stable condition. BERNADETTE
[2020-06-08] MEDS ORDERED: cefoTEtan DISODIUM 1 GM in D5W MINI-BAG PLUS 50 ML IV ONE (19:30)
[2020-06-08] MEDS ORDERED: HumaLOG INSULIN (NovoLOG) PER UNIT SC SCH (21:00)
[2020-06-08] MEDS: FERROUS SULFATE 325MG TAB PO SCH (21:24)
[2020-06-08] MEDS: HumaLOG 75/25 MIX INSULIN PER UNIT SC SCH (21:24)
[2020-06-08 22:00] VITALS: BP 158/71
[2020-06-09 02:00] VITALS: BP 154/72
[2020-06-09] MEDS: HumaLOG 75/25 MIX INSULIN PER UNIT SC SCH (08:43)
[2020-06-09] MEDS: HumaLOG INSULIN (NovoLOG) PER UNIT SC SCH (08:44)
[2020-06-09 08:45] VITALS: BP 154/74
[2020-06-09] MEDS: FERROUS SULFATE 325MG TAB PO SCH (08:45)
[2020-06-09] MEDS ORDERED: SIMVASTATIN 40 MG TAB PO SCH (09:00)
[2020-06-09] MEDS ORDERED: OMEPRAZOLE 20 MG CAP PO SCH (09:00)
[2020-06-09] MEDS ORDERED: SERTRALINE HCL 50 MG TAB PO SCH (09:00)
[2020-06-09] MEDS ORDERED: CALCITRIOL 0.25 MCG CAP (S0169) PO SCH (09:00)
[2020-06-09] MEDS ORDERED: CARVedilol 6.25 MG TAB PO SCH (09:00)
--- NOTE | 2020-06-10 10:55 | IPN ---
SURGICAL PROGRESS NOTE DATE: 06/09/2020 SUBJECTIVE: Patient is status post colostomy revision and for a prolapsing colostomy. Overall he is doing well. His colostomy is functioning nicely this morning and he has no significant pain, some mild abdominal spasms associated with his abdominal wall in this area, but he states that he is not really taking anything for pain medication and states that he feels as though he will be fine with some Tylenol at home. He is tolerating a regular diet this morning and has no other complaints. PHYSICAL EXAMINATION: On exam once again his ostomy is slightly edematous, but it is functioning well. No blood, no drainage from the site. IMPRESSION AND PLAN: Patient seems to be doing well status post colostomy revision and I feel that it is reasonable for him to be discharged home. Routine ostomy care is recommended, additional Tylenol if he needs some treatment for discomfort and to continue with his routine dialysis needs.
== END 2020-06-09 12:20 | disposition home or self-care (01) ==
LOC: M SDC 06:01 → M MSPAV 11:09 → M SDC 06-09 12:20
PROVIDERS: ATTEND Surgery
DX: K94.09 Other complications of colostomy (principal); E11.9 Type 2 diabetes mellitus without complications; I12.9 Hypertensive chronic kidney disease with stage 1 through stage 4 chronic kidney disease, or unspecified chronic kidney disease; I25.10 Atherosclerotic heart disease of native coronary artery without angina pectoris; I25.2 Old myocardial infarction; Z98.61 Coronary angioplasty status; K21.9 Gastro-esophageal reflux disease without esophagitis; N18.9 Chronic kidney disease, unspecified; D64.9 Anemia, unspecified; E78.5 Hyperlipidemia, unspecified; Z79.82 Long term (current) use of aspirin; F32.9 Major depressive disorder, single episode, unspecified; Z85.048 Personal history of other malignant neoplasm of rectum, rectosigmoid junction, and anus; Z92.3 Personal history of irradiation; Z92.21 Personal history of antineoplastic chemotherapy; Z79.899 Other long term (current) drug therapy; Z79.4 Long term (current) use of insulin; Z86.718 Personal history of other venous thrombosis and embolism
CPT/HCPCS: 36415; 44143; 84132; 88304; J2250; J2405; J3010

== ENCOUNTER 2022-11-24 13:21 | Inpatient (IN) | payer MEDICARE ==
[~2022-11-24] VITALS: Ht 180.3 cm; Wt 106.8 kg
[~2022-11-24 13:21] MED LIST changes: -D5W/0.2% SODIUM CHLORIDE 1,000 ML IV ONE; +OMEP40CA4 PO; -OMEP40CA97 PO; +POTA-151 PO; -POTA20TA6 PO; -cefoTEtan DISODIUM 2 GM in D5W MINI-BAG PLUS 50 ML IV ONE
[2022-11-24] MEDS ORDERED: INSU100I40 SQ (13:33)
[2022-11-24] MEDS ORDERED: ATOR1TAB21 PO (13:33)
[2022-11-24] MEDS ORDERED: AMLO1TAB24 PO (13:33)
[2022-11-24 15:34] LABS: BASO % 0.3 % (0.0-1.0); EOS % 0.4 % (0.0-3.0); HEMATOCRIT 32.5 % (42.0-52.0); HEMOGLOBIN 10.6 g/dl (13.5-17.5); LYMPH # 0.7 10^3/uL (1.5-5.0); LYMPH % 8.2 % (24.0-44.0); MEAN CORPUSCULAR HEMOGLOBIN 29.7 pg (27.0-33.0); MEAN CORPUSCULAR HGB CONC 32.6 g/dl (32.0-36.5); MONO # 1.1 10^3/uL (0.0-0.8); MONO % 14.3 % (2.0-8.0); NEUTROPHILS # 6.1 10^3/uL (1.5-8.5); NEUTROPHILS % 76.5 % (36.0-66.0); PLATELET COUNT, AUTOMATED 155 10^3/uL (150-450); RED BLOOD COUNT 3.57 10^6/uL (4.30-6.10)
[2022-11-24 16:02] LABS: BLOOD UREA NITROGEN 47 MG/DL (9-23); CALCIUM LEVEL 9.1 MG/DL (8.3-10.6); CARBON DIOXIDE LEVEL 29 MMOL/L (20-31); CHLORIDE LEVEL 98 MMOL/L (98-107); CPK CREATINE PHOSPHOKINASE 55 U/L (46-171); CREATININE FOR GFR 5.85 MG/DL (0.70-1.30); GLOMERULAR FILTRATION RATE 10.3 (>49); GLUCOSE, FASTING 152 MG/DL (74-106); MB/CK RELATIVE INDEX 3.63 (< OR =4); POTASSIUM SERUM 4.2 MMOL/L (3.5-5.1); SODIUM LEVEL 137 MMOL/L (136-145)
[2022-11-24] MEDS ORDERED: MORPHINE 4 MG/ML 1ML VIAL IV ONE ×3 (16:25→17:05)
[2022-11-24] MEDS ORDERED: ONDANSETRON 4MG 2ML VIAL IV ONE ×2 (16:25→22:25)
[2022-11-24 16:43] LABS: LIPASE 32 U/L (12-53)
[2022-11-24 16:45] LABS: ALBUMIN 3.4 G/DL (3.2-5.2); ALKALINE PHOSPHATASE 93 U/L (46-116); ALT/SGPT 14 U/L (7.0-40); AST/SGOT < 8 U/L (<34); BILIRUBIN,DIRECT 0.3 MG/DL (<0.4); BILIRUBIN,TOTAL 0.6 MG/DL (0.3-1.2); TOTAL PROTEIN 7.5 G/DL (5.7-8.2)
[2022-11-24 17:12] LABS: CK-MB VALUE MASS 1.7 NG/ML (<3.6)
[2022-11-24 17:13] LABS: MB/CK RELATIVE INDEX 3.09 (< OR =4)
[2022-11-24] MEDS ORDERED: HYDROMORPHONE HCL 0.5 MG/ 0.5 ML SYRINGE IV ONE (18:20)
[2022-11-24] MEDS ORDERED: MED REC IN PROGRESS XX SCH (20:55)
[2022-11-24] MEDS: MORPHINE 4 MG/ML 1ML VIAL IV PRN (22:49)
[2022-11-24] MEDS ORDERED: CARV12.5 PO (23:15)
[2022-11-24] MEDS ORDERED: HOME MED LIST COMPLETE! XX SCH (23:15)
[2022-11-24] MEDS ORDERED: GLUC1AUT2 IM (23:15)
[2022-11-24] MEDS ORDERED: CVS1CAP2 PO (23:15)
[2022-11-24] MEDS ORDERED: HUMA100I5 SQ (23:15)
[2022-11-24] MEDS ORDERED: CALC667T2 PO (23:15)
[2022-11-24] MEDS ORDERED: TRES1INJ2 SQ (23:15)
[2022-11-25] MEDS ORDERED: ALBUTEROL SULFATE 2.5MG/0.5ML INH NEB SOLN NEB PRN (00:35)
[2022-11-25] MEDS ORDERED: DEXTROSE 50% 50ML SYRINGE IV PRN (00:35)
[2022-11-25] MEDS ORDERED: GLUCOSE 4GM CHEW TABLET PO PRN (00:35)
[2022-11-25] MEDS ORDERED: GLUCAGON INJ 1MG VIAL SC PRN (00:35)
[2022-11-25] MEDS: MORPHINE 4 MG/ML 1ML VIAL IV PRN (00:35)
[2022-11-25] MEDS: CARVedilol 12.5 MG TAB PO SCH ×3 (00:35→20:07)
[2022-11-25] MEDS ORDERED: HYDROMORPHONE HCL 0.5 MG/ 0.5 ML SYRINGE IV PRN ×2 (00:35)
[2022-11-25] MEDS: IPRATROPIUM 0.5MG/ALBUTEROL 2.5MG INH SOL UD 3ML (DUONEB) NEB SCH ×4 (01:57→19:21)
[2022-11-25] MEDS ORDERED: HEPARIN SOD (PORCINE) 5000UNITS/ML 1ML VIAL/SYRINGE SC SCH (06:00)
[2022-11-25 06:33] LABS: CALCIUM LEVEL 8.7 MG/DL (8.3-10.6); CREATININE FOR GFR 7.33 MG/DL (0.70-1.30); POTASSIUM SERUM 5.4 MMOL/L (3.5-5.1)
[2022-11-25] MEDS: INSULIN LISPRO (NovoLOG) PER UNIT SC SCH ×4 (07:19→20:08)
[2022-11-25] MEDS: PANTOPRAZOLE 40MG VIAL IV SCH (07:20)
[2022-11-25] MEDS: amLODIPine 5 MG TAB PO SCH (07:21)
[2022-11-25] MEDS ORDERED: DEXTROSE 50% 50ML SYRINGE IV STA (07:22)
[2022-11-25] MEDS ORDERED: HumuLIN R (REGULAR) INSULIN (NovoLIN R) **100U/ML** PER UNIT IV STA (07:22)
[2022-11-25] MEDS: ASPIRIN 81MG ENTERIC TABLET PO SCH (07:23)
[2022-11-25] MEDS ORDERED: hydrALAZINE 20MG/ML 1ML VIAL IV PRN (07:35)
[2022-11-25] MEDS ORDERED: HEPARIN SOD (PORCINE) 5000UNITS/ML 1ML VIAL/SYRINGE IV PRN (07:40)
[2022-11-25 07:51] LABS: HEMATOCRIT 33.2 % (42.0-52.0); HEMOGLOBIN 10.3 g/dl (13.5-17.5); MEAN CORPUSCULAR HEMOGLOBIN 28.5 pg (27.0-33.0); PLATELET COUNT, AUTOMATED 159 10^3/uL (150-450); RED BLOOD COUNT 3.61 10^6/uL (4.30-6.10); WHITE BLOOD COUNT 12.3 10^3/uL (4.0-10.0)
[2022-11-25] MEDS ORDERED: HEPARIN DRIP 25,000 UNITS in IV 1 EA IV SCH (08:00)
[2022-11-25] MEDS: CALCIUM ACETATE 667MG GELCAP PO SCH ×3 (08:00→18:00)
[2022-11-25] MEDS: HEPARIN SOD (PORCINE) 5000UNITS/ML 1ML VIAL/SYRINGE SQ SCH ×2 (14:00→21:11)
[2022-11-25 16:01] VITALS: BP 144/64; TEMP 98.8; O2SAT 95
[2022-11-25] MEDS ORDERED: VANCOMYCIN HCL 750 MG, VIAL MATE ADAPTER 1 EACH in D5W 250 ML IV SCH (16:15)
[2022-11-25] MEDS ORDERED: MAALOX 30 ML SUSP *UDC PO ONE (16:50)
[2022-11-25] MEDS: CALCITRIOL 0.25 MCG CAP (S0169) PO SCH ×2 (16:52→20:07)
[2022-11-25] MEDS: cefTRIAXone SOD 2 GM in D5W MINI-BAG PLUS 50 ML IV SCH (17:55)
[2022-11-25] MEDS ORDERED: HYOSCYAMINE SULFATE 0.125 MG SUBL TABLET PO ONE (18:00)
[2022-11-25 19:42] VITALS: BP 155/68; TEMP 98.7; O2SAT 94
[2022-11-25] MEDS ORDERED: VANCOMYCIN HCL 750 MG, VIAL MATE ADAPTER 1 EACH in D5W 250 ML IV ONE ×2 (20:00→21:00)
[2022-11-25] MEDS ORDERED: PATIROMER SORBITEX CALCIUM 8.4 GM POWDER PACKET (VELTASSA) PO ONE (20:00)
[2022-11-25] MEDS: ATORVASTATIN 20 MG TAB PO SCH (20:08)
[2022-11-25 23:34] VITALS: BP 146/70; TEMP 99.2; O2SAT 4; O2SAT 94
[2022-11-26] VITALS (7 sets, daily range): BP systolic 136–168; BP diastolic 64–71; TEMP 97.5–98.8; O2SAT 88–96
[2022-11-26] MEDS: IPRATROPIUM 0.5MG/ALBUTEROL 2.5MG INH SOL UD 3ML (DUONEB) NEB SCH ×2 (01:13→07:29)
[2022-11-26 05:52] LABS: BASO % 0.3 % (0.0-1.0); EOS % 0.1 % (0.0-3.0); HEMOGLOBIN 9.7 g/dl (13.5-17.5); LYMPH # 0.4 10^3/uL (1.5-5.0); LYMPH % 4.7 % (24.0-44.0); MEAN CORPUSCULAR HGB CONC 32.3 g/dl (32.0-36.5); MEAN CORPUSCULAR VOLUME 89.6 fl (80.0-96.0); MONO # 1.1 10^3/uL (0.0-0.8); MONO % 13.9 % (2.0-8.0); NEUTROPHILS # 6.1 10^3/uL (1.5-8.5); NEUTROPHILS % 80.6 % (36.0-66.0); PLATELET COUNT, AUTOMATED 146 10^3/uL (150-450); RED BLOOD COUNT 3.35 10^6/uL (4.30-6.10); WHITE BLOOD COUNT 7.6 10^3/uL (4.0-10.0)
[2022-11-26] MEDS: HEPARIN SOD (PORCINE) 5000UNITS/ML 1ML VIAL/SYRINGE SQ SCH ×3 (06:05→21:58)
[2022-11-26 06:21] LABS: ALBUMIN 2.9 G/DL (3.2-5.2); ALKALINE PHOSPHATASE 71 U/L (46-116); ALT/SGPT < 9 U/L (7.0-40); AST/SGOT < 8 U/L (<34); BILIRUBIN,TOTAL 0.7 MG/DL (0.3-1.2); BLOOD UREA NITROGEN 89 MG/DL (9-23); CALCIUM LEVEL 8.7 MG/DL (8.3-10.6); CARBON DIOXIDE LEVEL 25 MMOL/L (20-31); CHLORIDE LEVEL 95 MMOL/L (98-107); GLOMERULAR FILTRATION RATE 6.1 (>49); GLUCOSE, FASTING 198 MG/DL (74-106); MAGNESIUM LEVEL 1.7 MG/DL (1.8-2.4); POTASSIUM SERUM 5.5 MMOL/L (3.5-5.1); SODIUM LEVEL 133 MMOL/L (136-145); TOTAL PROTEIN 7.1 G/DL (5.7-8.2)
[2022-11-26] MEDS ORDERED: SODIUM CHLORIDE 0.9% 1000ML IV PRN (07:40)
[2022-11-26] MEDS ORDERED: HEPARIN 1,000UNITS/ML 10ML VIAL (FOR RADIOLOGY & DIALYSIS ONLY) IV PRN (07:40)
[2022-11-26] MEDS ORDERED: HEPARIN 1,000UNITS/ML 10ML VIAL (FOR RADIOLOGY & DIALYSIS ONLY) XX SCH (07:40)
[2022-11-26] MEDS ORDERED: LIDOCAINE 1% SDV 5ML VIAL SC PRN (07:40)
[2022-11-26] MEDS: INSULIN LISPRO (NovoLOG) PER UNIT SC SCH ×4 (07:42→21:00)
[2022-11-26] MEDS: PANTOPRAZOLE 40MG VIAL IV SCH (07:42)
[2022-11-26] MEDS: CALCITRIOL 0.25 MCG CAP (S0169) PO SCH ×2 (07:43→21:58)
[2022-11-26] MEDS: CALCIUM ACETATE 667MG GELCAP PO SCH ×3 (07:43→17:13)
[2022-11-26] MEDS: amLODIPine 5 MG TAB PO SCH (07:44)
[2022-11-26] MEDS: CARVedilol 12.5 MG TAB PO SCH ×2 (07:44→21:58)
[2022-11-26 08:22] LABS: HEPATITIS B SURFACE ANTIBODY NEGATIVE (POSITIVE)
[2022-11-26 08:54] LABS: HEPATITIS C VIRUS ABY INDEX 0.16 INDEX (<0.8)
[2022-11-26 08:55] LABS: HEPATITIS B CORE ANTIBODY IGM NEGATIVE (NEGATIVE)
[2022-11-26] MEDS: LEVEMIR (INSULIN DETEMIR) 1 UNITS/0.01ML SC SCH ×2 (09:00→21:58)
[2022-11-26] MEDS ORDERED: IPRATROPIUM 0.5MG/ALBUTEROL 2.5MG INH SOL UD 3ML (DUONEB) NEB PRN (12:50)
[2022-11-26] MEDS: ASPIRIN 81MG ENTERIC TABLET PO SCH (13:57)
[2022-11-26] MEDS ORDERED: VANCOMYCIN HCL 1,000 MG, VIAL MATE ADAPTER 1 EACH in D5W 250 ML IV SCH (16:00)
[2022-11-26] MEDS: cefTRIAXone SOD 2 GM in D5W MINI-BAG PLUS 50 ML IV SCH (16:57)
[2022-11-26] MEDS: ATORVASTATIN 20 MG TAB PO SCH (21:59)
[2022-11-27] VITALS (9 sets, daily range): BP systolic 126–172; BP diastolic 59–85; TEMP 96.9–98.4; O2SAT 90–100
[2022-11-27 04:32] LABS: HEMATOCRIT 30.1 % (42.0-52.0); HEMOGLOBIN 9.6 g/dl (13.5-17.5); MEAN CORPUSCULAR HEMOGLOBIN 28.9 pg (27.0-33.0); MEAN CORPUSCULAR HGB CONC 31.9 g/dl (32.0-36.5); MEAN CORPUSCULAR VOLUME 90.7 fl (80.0-96.0); PLATELET COUNT, AUTOMATED 146 10^3/uL (150-450); RED BLOOD COUNT 3.32 10^6/uL (4.30-6.10); WHITE BLOOD COUNT 5.4 10^3/uL (4.0-10.0)
[2022-11-27 05:01] LABS: CALCIUM LEVEL 9.1 MG/DL (8.3-10.6); CREATININE FOR GFR 7.47 MG/DL (0.70-1.30); GLOMERULAR FILTRATION RATE 7.8 (>49); MAGNESIUM LEVEL 2.1 MG/DL (1.8-2.4); POTASSIUM SERUM 5.1 MMOL/L (3.5-5.1); VANCOMYCIN RANDOM 22.2 UG/ML
[2022-11-27] MEDS: HEPARIN SOD (PORCINE) 5000UNITS/ML 1ML VIAL/SYRINGE SQ SCH ×3 (06:00→23:07)
[2022-11-27] MEDS: INSULIN LISPRO (NovoLOG) PER UNIT SC SCH ×4 (07:30→21:00)
[2022-11-27] MEDS: CALCIUM ACETATE 667MG GELCAP PO SCH ×3 (08:00→17:45)
[2022-11-27] MEDS ORDERED: MAALOX 30 ML SUSP *UDC PO ONE (09:45)
[2022-11-27] MEDS: CALCITRIOL 0.25 MCG CAP (S0169) PO SCH ×2 (09:54→20:04)
[2022-11-27] MEDS: PANTOPRAZOLE 40MG VIAL IV SCH (09:54)
[2022-11-27] MEDS: ASPIRIN 81MG ENTERIC TABLET PO SCH (09:54)
[2022-11-27] MEDS: LEVEMIR (INSULIN DETEMIR) 1 UNITS/0.01ML SC SCH ×2 (09:55→20:04)
[2022-11-27] MEDS: amLODIPine 5 MG TAB PO SCH (09:55)
[2022-11-27] MEDS: CARVedilol 12.5 MG TAB PO SCH ×2 (09:55→20:04)
[2022-11-27] MEDS: ACETAMINOPHEN TAB 650MG DOSE (2X325MG) PO PRN ×2 (13:15→20:05)
[2022-11-27] MEDS: cefTRIAXone SOD 2 GM in D5W MINI-BAG PLUS 50 ML IV SCH (16:08)
[2022-11-27] MEDS: ATORVASTATIN 20 MG TAB PO SCH (20:04)
[2022-11-28 03:32] VITALS: BP 139/65; TEMP 97.1; O2SAT 95
[2022-11-28] MEDS: ACETAMINOPHEN TAB 650MG DOSE (2X325MG) PO PRN ×2 (04:03)
[2022-11-28 04:12] LABS: HEMATOCRIT 30.9 % (42.0-52.0); HEMOGLOBIN 9.9 g/dl (13.5-17.5); MEAN CORPUSCULAR HEMOGLOBIN 28.7 pg (27.0-33.0); MEAN CORPUSCULAR VOLUME 89.6 fl (80.0-96.0); PLATELET COUNT, AUTOMATED 137 10^3/uL (150-450); RED BLOOD COUNT 3.45 10^6/uL (4.30-6.10); WHITE BLOOD COUNT 4.9 10^3/uL (4.0-10.0)
[2022-11-28 04:37] LABS: VANCOMYCIN RANDOM 18.2 UG/ML
[2022-11-28 04:43] LABS: CALCIUM LEVEL 9.1 MG/DL (8.3-10.6); CREATININE FOR GFR 8.97 MG/DL (0.70-1.30); GLOMERULAR FILTRATION RATE 6.3 (>49); MAGNESIUM LEVEL 2.2 MG/DL (1.8-2.4); POTASSIUM SERUM 4.8 MMOL/L (3.5-5.1)
[2022-11-28] MEDS: ASPIRIN 81MG ENTERIC TABLET PO SCH (06:30)
[2022-11-28] MEDS: HEPARIN SOD (PORCINE) 5000UNITS/ML 1ML VIAL/SYRINGE SQ SCH (06:31)
[2022-11-28] MEDS ORDERED: LIDOCAINE 1% SDV 5ML VIAL SC PRN (07:25)
[2022-11-28] MEDS ORDERED: SODIUM CHLORIDE 0.9% 1000ML IV PRN (07:25)
[2022-11-28] MEDS ORDERED: HEPARIN 1,000UNITS/ML 10ML VIAL (FOR RADIOLOGY & DIALYSIS ONLY) XX SCH (07:25)
[2022-11-28] MEDS ORDERED: DARBEPOETIN 100MCG/0.5ML *DIALYSIS* SYRINGE IV SCH (07:25)
[2022-11-28] MEDS ORDERED: HEPARIN 1,000UNITS/ML 10ML VIAL (FOR RADIOLOGY & DIALYSIS ONLY) IV PRN (07:25)
[2022-11-28] MEDS: INSULIN LISPRO (NovoLOG) PER UNIT SC SCH ×2 (07:30→12:00)
[2022-11-28 08:00] VITALS: BP 178/88; TEMP 96.5; O2SAT 93
[2022-11-28] MEDS: CALCIUM ACETATE 667MG GELCAP PO SCH ×2 (08:00→12:47)
[2022-11-28 12:00] VITALS: BP 158/90; TEMP 96.5; O2SAT 95
[2022-11-28 12:32] VITALS: BP 139/80; TEMP 97.2; O2SAT 97
[2022-11-28] MEDS: CALCITRIOL 0.25 MCG CAP (S0169) PO SCH (12:46)
[2022-11-28] MEDS: CARVedilol 12.5 MG TAB PO SCH (12:47)
[2022-11-28] MEDS: PANTOPRAZOLE 40MG VIAL IV SCH (12:47)
[2022-11-28] MEDS: amLODIPine 5 MG TAB PO SCH (12:47)
[2022-11-28] MEDS: LEVEMIR (INSULIN DETEMIR) 1 UNITS/0.01ML SC SCH (12:48)
[2022-11-28] MEDS ORDERED: ceFAZolin SOD 1 GM in D5W MINI-BAG PLUS 50 ML IV SCH (16:00)
== END 2022-11-28 14:17 | disposition left against medical advice (07) | DRG 871 ==
LOC: M ED 13:21 → M ED INP 11-25 00:10 → ENRESERV 11-25 14:55 → M PCU 11-25 15:45
PROVIDERS: ADMIT Internal Medicine; ATTEND Family Medicine
PROC: B246ZZZ Ultrasonography of Right and Left Heart (ICD-10-PCS; 2022-11-25)
PROC: 5A1D70Z Performance of Urinary Filtration, Intermittent, Less than 6 Hours Per Day (ICD-10-PCS; principal; 2022-11-26)
DX: R78.81 Bacteremia (principal); N18.6 End stage renal disease; I12.0 Hypertensive chronic kidney disease with stage 5 chronic kidney disease or end stage renal disease; E87.1 Hypo-osmolality and hyponatremia; N39.0 Urinary tract infection, site not specified; R07.89 Other chest pain; I25.10 Atherosclerotic heart disease of native coronary artery without angina pectoris; F32.A Depression, unspecified; R50.9 Fever, unspecified; E11.22 Type 2 diabetes mellitus with diabetic chronic kidney disease; K21.9 Gastro-esophageal reflux disease without esophagitis; E78.00 Pure hypercholesterolemia, unspecified; G47.33 Obstructive sleep apnea (adult) (pediatric); B95.61 Methicillin susceptible Staphylococcus aureus infection as the cause of diseases classified elsewhere; D63.1 Anemia in chronic kidney disease; R19.7 Diarrhea, unspecified; E87.5 Hyperkalemia; Z93.3 Colostomy status; Z90.49 Acquired absence of other specified parts of digestive tract; Z99.2 Dependence on renal dialysis; Z95.5 Presence of coronary angioplasty implant and graft; Z85.048 Personal history of other malignant neoplasm of rectum, rectosigmoid junction, and anus; Z89.511 Acquired absence of right leg below knee; Z87.891 Personal history of nicotine dependence; Z79.82 Long term (current) use of aspirin; Z79.4 Long term (current) use of insulin; Z79.899 Other long term (current) drug therapy; Z88.1 Allergy status to other antibiotic agents

== ENCOUNTER → 2024-06-07 | Outpatient (CLI) | payer MEDICARE, MEDICAID ==
[~2024-06-07] VITALS: Ht 180.3 cm; Wt 108.2 kg
[~2024-06-07] MED LIST changes: +AMLO1TAB24 PO; +ATOR1TAB21 PO; +CALC667T2 PO; +CARV12.5 PO; +CARV3.12 PO; +CINA30TA4 PO; +CVS1CAP2 PO; +FURO40TA2 PO; +GLUC1AUT2 IM; +HOME MED LIST COMPLETE! XX SCH; +HUMA100I5 SQ; +INSU100I40 SQ; +NS (Normal Saline) 0.9% 1,000 ML IV SCH; +RENV2TAB PO; +TRES1INJ2 SQ
[2024-06-07] MEDS: ceFAZolin SOD 2 GM in IV 1 EA IV ONE (08:00)
[2024-06-07 08:27] VITALS: BP 173/89; TEMP 97.1; O2SAT 99
[2024-06-07] MEDS: BUPivacaine LIPOSOME/PF 266MG 20ML VIAL (13.3MG/ML)(EXPAREL) As Ordered ONE (10:12)
== END ==
LOC: M OR 07:51 → UNDOADMIN 07:51 → M LAB 08:00 → EDSTATUS 12:15
PROVIDERS: ATTEND Surgery
DX: K44.9 Diaphragmatic hernia without obstruction or gangrene (principal); I48.91 Unspecified atrial fibrillation; R94.31 Abnormal electrocardiogram [ECG] [EKG]; Z53.09 Procedure and treatment not carried out because of other contraindication
CPT/HCPCS: 36415; 84132; 93005; J0665; J0690

== ENCOUNTER 2024-06-12 08:51 | Inpatient (IN) | payer MEDICARE, MEDICAID ==
[~2024-06-12] VITALS: Ht 180.3 cm; Wt 102.9 kg
[~2024-06-12 08:51] MED LIST changes: -CINA30TA4 PO; -HOME MED LIST COMPLETE! XX SCH; -NS (Normal Saline) 0.9% 1,000 ML IV SCH
[2024-06-12] MEDS ORDERED: CARVedilol 3.125 MG TAB PO SCH (09:00)
[2024-06-12 09:40] LABS: VENOUS BASE EXCESS -1.1 (-2.0-2.0); VENOUS PARTIAL PRESSURE CO2 47.2 mmHg (38.0-50.0); VENOUS PARTIAL PRESSURE O2 35.5 mmHg (30.0-50.0); VENOUS PH 7.342 UNITS (7.330-7.430); VENOUS STANDARD HCO3 22.9 MMOL/L; VENOUS TOTAL CO2 26.5 MMOL/L (24.0-28.0)
[2024-06-12 09:48] LABS: BASO % 0.3 % (0.0-1.0); EOS % 0.3 % (0.0-3.0); HEMATOCRIT 35.5 % (42.0-52.0); HEMOGLOBIN 11.3 g/dl (13.5-17.5); LYMPH # 0.6 10^3/uL (1.5-5.0); MEAN CORPUSCULAR HEMOGLOBIN 31.1 pg (27.0-33.0); MEAN CORPUSCULAR HGB CONC 31.8 g/dl (32.0-36.5); MEAN CORPUSCULAR VOLUME 97.8 fl (80.0-96.0); MONO # 0.5 10^3/uL (0.0-0.8); MONO % 14.8 % (2.0-8.0); NEUTROPHILS % 66.3 % (36.0-66.0); PLATELET COUNT, AUTOMATED 103 10^3/uL (150-450); RED BLOOD COUNT 3.63 10^6/uL (4.30-6.10); WHITE BLOOD COUNT 3.1 10^3/uL (4.0-10.0)
[2024-06-12 10:02] LABS: INR 1.1; PROTHROMBIN TIME 14.5 SECONDS (12.5-14.5)
[2024-06-12 10:26] LABS: ALBUMIN 3.7 G/DL (3.2-5.2); BILIRUBIN,DIRECT 0.2 MG/DL (<0.4); BILIRUBIN,TOTAL 0.5 MG/DL (0.3-1.2); CREATININE FOR GFR 6.23 MG/DL (0.70-1.30); GLOMERULAR FILTRATION RATE 9.6 (>49); POTASSIUM SERUM 3.9 MMOL/L (3.5-5.1); TOTAL PROTEIN 7.8 G/DL (5.7-8.2)
[2024-06-12 10:27] LABS: CK-MB VALUE MASS 2.8 NG/ML (<3.6); MB/CK RELATIVE INDEX 0.74 (< OR =4)
[2024-06-12 11:47] LABS: CK-MB VALUE MASS 2.9 NG/ML (<3.6)
[2024-06-12 11:59] LABS: MB/CK RELATIVE INDEX 0.77 (< OR =4)
[2024-06-12] MEDS: APIXABAN 5 MG TAB (ELIQUIS) PO ONE (12:00)
[2024-06-12] MEDS ORDERED: CINA30TA4 PO (13:19)
[2024-06-12] MEDS ORDERED: HOME MED LIST COMPLETE! XX SCH (13:25)
[2024-06-12] MEDS ORDERED: LEVALBUTEROL 1.25MG 0.5ML CONCENTRATE NEB NEB SCH (14:00)
[2024-06-12] MEDS ORDERED: GLUCAGON INJ 1MG VIAL SC PRN (14:30)
[2024-06-12] MEDS ORDERED: DEXTROSE 50% 50ML SYRINGE IV PRN (14:30)
[2024-06-12] MEDS ORDERED: GLUCOSE 4 GM CHEW PO PRN (14:30)
[2024-06-12] MEDS: IPRATROPIUM 0.5MG/ALBUTEROL 2.5MG INH SOL UD 3ML (DUONEB) NEB ONE (15:01)
[2024-06-12] MEDS: BUDESONIDE 0.5 MG/2 ML INHALATION SUSPENSION NEB ONE (15:01)
[2024-06-12] MEDS: LEVALBUTEROL 1.25MG 0.5ML CONCENTRATE NEB NEB SCH (15:38)
[2024-06-12] MEDS: dexAMETHasone 20MG/5ML VIAL IV SCH (15:38)
[2024-06-12 16:09] VITALS: BP 146/75; TEMP 97.8; O2SAT 95
[2024-06-12] MEDS: FUROSEMIDE 100MG/10ML VIAL IV ONE (16:27)
[2024-06-12] MEDS: OMEPRAZOLE 20MG CAP PO SCH (16:27)
[2024-06-12] MEDS: ASPIRIN 81MG ENTERIC TABLET PO SCH (16:28)
[2024-06-12] MEDS: SERTRALINE HCL 50 MG TAB PO SCH (16:28)
[2024-06-12] MEDS: FERROUS SULFATE 325MG TAB PO SCH (16:28)
[2024-06-12] MEDS: LORATADINE 10 MG TAB PO SCH (16:28)
[2024-06-12] MEDS: CARVedilol 3.125 MG TAB PO SCH (16:34)
[2024-06-12] MEDS: LevoFLOXacin IV 750 MG in IV 1 EA IV ONE (16:55)
[2024-06-12] MEDS: INSULIN LISPRO (NovoLOG) PER UNIT SC SCH ×2 (17:44→20:35)
[2024-06-12] MEDS: SYMBICORT 160/4.5MCG INHALER 6GM INH SCH (19:44)
[2024-06-12 20:05] VITALS: BP 134/87; TEMP 97.8; O2SAT 94
[2024-06-12] MEDS: APIXABAN 5 MG TAB (ELIQUIS) PO SCH (21:00)
[2024-06-12] MEDS: ATORVASTATIN 20 MG TAB PO SCH (21:00)
[2024-06-12] MEDS: CINACALCET 30 MG TAB (SENSIPAR) PO SCH (23:00)
[2024-06-12 23:35] VITALS: BP 135/75; TEMP 97.1; O2SAT 97
[2024-06-13 03:30] VITALS: BP 132/75; TEMP 97.3; O2SAT 98
[2024-06-13 06:27] LABS: BASO % 0.4 % (0.0-1.0); HEMATOCRIT 32.7 % (42.0-52.0); HEMOGLOBIN 10.4 g/dl (13.5-17.5); LYMPH # 0.2 10^3/uL (1.5-5.0); LYMPH % 10.8 % (24.0-44.0); MEAN CORPUSCULAR HEMOGLOBIN 30.9 pg (27.0-33.0); MEAN CORPUSCULAR HGB CONC 31.8 g/dl (32.0-36.5); MONO # 0.2 10^3/uL (0.0-0.8); MONO % 7.2 % (2.0-8.0); NEUTROPHILS # 1.8 10^3/uL (1.5-8.5); NEUTROPHILS % 81.6 % (36.0-66.0); RED BLOOD COUNT 3.37 10^6/uL (4.30-6.10); WHITE BLOOD COUNT 2.2 10^3/uL (4.0-10.0)
[2024-06-13 07:14] LABS: BLOOD UREA NITROGEN 61 MG/DL (9-23); CALCIUM LEVEL 7.7 MG/DL (8.3-10.6); CARBON DIOXIDE LEVEL 25 MMOL/L (20-31); CHLORIDE LEVEL 102 MMOL/L (98-107); CREATININE FOR GFR 6.92 MG/DL (0.70-1.30); GLOMERULAR FILTRATION RATE 8.5 (>49); GLUCOSE, FASTING 216 MG/DL (74-106); SODIUM LEVEL 139 MMOL/L (136-145)
[2024-06-13 07:22] LABS: PLATELET COUNT, AUTOMATED 98 10^3/uL (150-450)
[2024-06-13 07:31] VITALS: BP 135/75; TEMP 96.8; O2SAT 100
[2024-06-13] MEDS ORDERED: HEPARIN 1,000UNITS/ML 10ML VIAL (FOR RADIOLOGY & DIALYSIS ONLY) XX SCH (08:30)
[2024-06-13] MEDS ORDERED: LIDOCAINE 1% SDV 5ML VIAL SC PRN (08:30)
[2024-06-13] MEDS ORDERED: SODIUM CHLORIDE 0.9% 1000 ML IV PRN (08:30)
[2024-06-13] MEDS ORDERED: HEPARIN 1,000UNITS/ML 10ML VIAL (FOR RADIOLOGY & DIALYSIS ONLY) IV PRN (08:30)
[2024-06-13 10:07] LABS: HEPATITIS B SURFACE ANTIBODY NEGATIVE (POSITIVE); HEPATITIS B SURFACE ANTIGEN NEGATIVE (NEGATIVE)
[2024-06-13 10:47] LABS: HEPATITIS B CORE ANTIBODY IGM NEGATIVE (NEGATIVE); HEPATITIS C VIRUS ABY INDEX 0.13 INDEX (<0.8)
[2024-06-13 13:25] VITALS: BP 125/60; TEMP 97; O2SAT 92
[2024-06-13 15:17] VITALS: BP 145/67; TEMP 95.9; O2SAT 98
[2024-06-13 20:13] VITALS: BP 139/69; TEMP 98; O2SAT 93
[2024-06-13 23:23] VITALS: BP 128/66; TEMP 97.7; O2SAT 97
[2024-06-14 03:56] VITALS: BP 133/65; TEMP 98; O2SAT 99
[2024-06-14 07:25] LABS: CALCIUM LEVEL 7.7 MG/DL (8.3-10.6); CREATININE FOR GFR 5.32 MG/DL (0.70-1.30); GLOMERULAR FILTRATION RATE 11.5 (>49); POTASSIUM SERUM 4.6 MMOL/L (3.5-5.1)
[2024-06-14 07:41] LABS: HEMATOCRIT 32.2 % (42.0-52.0); HEMOGLOBIN 10.5 g/dl (13.5-17.5); LYMPH # 0.3 10^3/uL (1.5-5.0); LYMPH % 8.1 % (24.0-44.0); MEAN CORPUSCULAR HEMOGLOBIN 31.2 pg (27.0-33.0); MEAN CORPUSCULAR HGB CONC 32.6 g/dl (32.0-36.5); MEAN CORPUSCULAR VOLUME 95.5 fl (80.0-96.0); MONO # 0.2 10^3/uL (0.0-0.8); MONO % 6.6 % (2.0-8.0); NEUTROPHILS # 2.8 10^3/uL (1.5-8.5); PLATELET COUNT, AUTOMATED 103 10^3/uL (150-450); RED BLOOD COUNT 3.37 10^6/uL (4.30-6.10); WHITE BLOOD COUNT 3.3 10^3/uL (4.0-10.0)
[2024-06-14 07:50] VITALS: BP 142/70; TEMP 97; O2SAT 97
[2024-06-14] MEDS: guaiFENesin ER TABLET 600 MG TAB PO SCH (09:51)
[2024-06-14 11:54] VITALS: BP 138/79; TEMP 97.1; O2SAT 97
[2024-06-14 15:42] VITALS: BP 150/70; TEMP 97.6; O2SAT 96
[2024-06-14 19:57] VITALS: BP 142/72; TEMP 97.2; O2SAT 95
[2024-06-15 04:30] VITALS: BP 137/77; TEMP 96.6; O2SAT 95
[2024-06-15 06:35] LABS: HEMOGLOBIN 10.2 g/dl (13.5-17.5); LYMPH # 0.2 10^3/uL (1.5-5.0); LYMPH % 5.2 % (24.0-44.0); MEAN CORPUSCULAR HEMOGLOBIN 31.1 pg (27.0-33.0); MEAN CORPUSCULAR HGB CONC 32.9 g/dl (32.0-36.5); MEAN CORPUSCULAR VOLUME 94.5 fl (80.0-96.0); MONO # 0.2 10^3/uL (0.0-0.8); MONO % 4.6 % (2.0-8.0); NEUTROPHILS # 3.3 10^3/uL (1.5-8.5); NEUTROPHILS % 89.4 % (36.0-66.0); PLATELET COUNT, AUTOMATED 109 10^3/uL (150-450); RED BLOOD COUNT 3.28 10^6/uL (4.30-6.10); WHITE BLOOD COUNT 3.7 10^3/uL (4.0-10.0)
[2024-06-15 06:57] LABS: CALCIUM LEVEL 7.3 MG/DL (8.3-10.6); CREATININE FOR GFR 6.33 MG/DL (0.70-1.30); GLOMERULAR FILTRATION RATE 9.4 (>49)
[2024-06-15 07:57] VITALS: BP 141/65; TEMP 97; O2SAT 100
[2024-06-15 08:26] VITALS: BP 141/65
[2024-06-15] MEDS ORDERED: MUCI600T31 PO (10:48)
[2024-06-15] MEDS ORDERED: CARV3.12 PO (10:48)
[2024-06-15] MEDS ORDERED: ELIQ5TAB PO (10:48)
== END 2024-06-15 13:14 | disposition home or self-care (01) | DRG 291 ==
LOC: M ED 08:51 → M ED INP 13:47 → M PCU 15:57
PROVIDERS: ADMIT Internal Medicine Nephrology; ATTEND Internal Medicine
PROC: 5A1D70Z Performance of Urinary Filtration, Intermittent, Less than 6 Hours Per Day (ICD-10-PCS; principal; 2024-06-13)
DX: I13.2 Hypertensive heart and chronic kidney disease with heart failure and with stage 5 chronic kidney disease, or end stage renal disease (principal); I50.33 Acute on chronic diastolic (congestive) heart failure; N18.6 End stage renal disease; E87.29 Other acidosis; D61.818 Other pancytopenia; E11.22 Type 2 diabetes mellitus with diabetic chronic kidney disease; I48.91 Unspecified atrial fibrillation; J20.8 Acute bronchitis due to other specified organisms; D69.6 Thrombocytopenia, unspecified; E78.5 Hyperlipidemia, unspecified; I25.10 Atherosclerotic heart disease of native coronary artery without angina pectoris; K43.5 Parastomal hernia without obstruction or gangrene; B97.81 Human metapneumovirus as the cause of diseases classified elsewhere; K21.9 Gastro-esophageal reflux disease without esophagitis; D72.819 Decreased white blood cell count, unspecified; G47.33 Obstructive sleep apnea (adult) (pediatric); Z89.511 Acquired absence of right leg below knee; Z95.5 Presence of coronary angioplasty implant and graft; Z90.49 Acquired absence of other specified parts of digestive tract; Z87.891 Personal history of nicotine dependence; F32.A Depression, unspecified; Z99.2 Dependence on renal dialysis; Z79.82 Long term (current) use of aspirin; Z79.4 Long term (current) use of insulin; Z79.899 Other long term (current) drug therapy; Z85.048 Personal history of other malignant neoplasm of rectum, rectosigmoid junction, and anus; Z92.3 Personal history of irradiation; Z92.21 Personal history of antineoplastic chemotherapy

== ENCOUNTER → 2025-01-26 | Outpatient (CLI) | payer MEDICARE, MEDICAID ==
[~2025-01-26] MED LIST changes: +CINA30TA4 PO; +ELIQ5TAB PO; -FLOM0.4C39 PO; +MUCI600T31 PO; +TAMS-18 PO
== END ==
LOC: M RAD 13:32
PROVIDERS: ATTEND Physician Assistant
DX: J90 Pleural effusion, not elsewhere classified (principal)

== ENCOUNTER → 2025-01-27 | Outpatient (CLI) | payer MEDICARE, MEDICAID | LOC: M RAD 13:05 | PROVIDERS: ATTEND Physician Assistant | DX: J90 Pleural effusion, not elsewhere classified (principal); R91.8 Other nonspecific abnormal finding of lung field; I51.7 Cardiomegaly; R60.1 Generalized edema ==

== ENCOUNTER → 2025-02-02 | Outpatient (CLI) | payer MEDICARE, MEDICAID ==
[~2025-02-02] MED LIST changes: +LIDOCAINE 1% MDV 20 ML VIAL SC SCH
[2025-02-02 07:35] VITALS: TEMP 97.7
[2025-02-02 08:05] LABS: PLATELET COUNT, AUTOMATED 126 10^3/uL (150-450)
[2025-02-02 08:16] LABS: INR 1.09
[2025-02-02 09:19] LABS: APPEARANCE, BODY FLUID CLEAR (CLEAR); PLEURAL FL COLOR YELLOW (COLORLESS); SOURCE, BODY FLUID PLEURAL
[2025-02-02 09:20] LABS: PH BODY FLUID 7.712 UNITS (NOT ESTABLISHED); SOURCE, BODY FLUID pH PLEURAL
[2025-02-02 10:15] VITALS: BP 173/78; O2SAT 97
== END ==
LOC: M IRPRO 07:20
PROVIDERS: ATTEND Internal Medicine Pulmonary Disease
DX: J90 Pleural effusion, not elsewhere classified (principal); Z79.01 Long term (current) use of anticoagulants

== ENCOUNTER 2025-04-11 07:05 | Inpatient (IN) | payer MEDICARE, MEDICAID ==
[~2025-04-11] VITALS: Ht 180.3 cm; Wt 99.2 kg
[~2025-04-11 07:05] MED LIST changes: +ALBU2.5V10 INH; +BREO1INH3 INH; +ISOS20TA72 PO; -LIDOCAINE 1% MDV 20 ML VIAL SC SCH; +LIDOCAINE 2% INJ 100 MG/5 ML SYRINGE As Ordered ONE; +MIDAZOLAM INJ 2 MG/2 ML VIAL As Ordered ONE; +ROCURONIUM BROMIDE 50MG/5ML VIAL As Ordered ONE; +TRES100I SC; +VENTAER INH
[2025-04-11] MEDS ORDERED: LR 1,000 ML IV SCH (07:40)
[2025-04-11] MEDS: NS (Normal Saline) 0.9% 1,000 ML IV ONE (07:50)
[2025-04-11 08:01] LABS: PLATELET COUNT, AUTOMATED 143 10^3/uL (150-450)
[2025-04-11 08:30] LABS: CARBON DIOXIDE LEVEL 32.0 MMOL/L (20-31); CHLORIDE LEVEL 100.0 MMOL/L (98-107); POTASSIUM SERUM 3.7 MMOL/L (3.5-5.1); SODIUM LEVEL 143.0 MMOL/L (136-145)
[2025-04-11 08:34] LABS: ALT/SGPT 10.0 U/L (7.0-40); AST/SGOT 15.0 U/L (<34); CREATININE FOR GFR 5.02 MG/DL (0.70-1.30); GLOMERULAR FILTRATION RATE 11.7 (>42)
[2025-04-11] MEDS: ceFAZolin SOD 2 GM IV ONCE IV ONE (08:39)
[2025-04-11 09:07] LABS: CALCIUM LEVEL 9.1 MG/DL (8.3-10.6)
[2025-04-11] MEDS ORDERED: SUGAMMADEX SODIUM 500 MG/5 ML VIAL As Ordered ONE (09:31)
[2025-04-11] MEDS ORDERED: ONDANSETRON 4MG/2ML VIAL As Ordered ONE (09:31)
[2025-04-11] MEDS ORDERED: HYDROMORPHONE HCL 0.5 MG/0.5 ML SYRINGE IV PRN (11:05)
[2025-04-11] MEDS ORDERED: MORPHINE 2 MG/ML 1 ML VIAL IV PRN (11:05)
[2025-04-11 12:00] VITALS: BP 119/65; TEMP 97.2; O2SAT 96
== END 2025-04-11 12:38 | disposition home or self-care (01) | DRG 355 ==
LOC: M OR 07:05
PROVIDERS: ADMIT Surgery; ATTEND Surgery
PROC: 8E0W4CZ Robotic Assisted Procedure of Trunk Region, Percutaneous Endoscopic Approach (ICD-10-PCS; 2025-04-11)
PROC: 0WUF4JZ Supplement Abdominal Wall with Synthetic Substitute, Percutaneous Endoscopic Approach (ICD-10-PCS; principal; 2025-04-11 07:30)
DX: K43.5 Parastomal hernia without obstruction or gangrene (principal); N18.9 Chronic kidney disease, unspecified; E11.9 Type 2 diabetes mellitus without complications; I12.9 Hypertensive chronic kidney disease with stage 1 through stage 4 chronic kidney disease, or unspecified chronic kidney disease; F32.A Depression, unspecified; E78.00 Pure hypercholesterolemia, unspecified; E78.2 Mixed hyperlipidemia; K66.0 Peritoneal adhesions (postprocedural) (postinfection); Z85.048 Personal history of other malignant neoplasm of rectum, rectosigmoid junction, and anus; Z95.5 Presence of coronary angioplasty implant and graft; Z90.49 Acquired absence of other specified parts of digestive tract; Z89.511 Acquired absence of right leg below knee; Z85.828 Personal history of other malignant neoplasm of skin; Z87.891 Personal history of nicotine dependence; Z79.01 Long term (current) use of anticoagulants; Z79.82 Long term (current) use of aspirin; Z79.4 Long term (current) use of insulin; Z79.899 Other long term (current) drug therapy; Z88.1 Allergy status to other antibiotic agents